=== PATIENT | male | born 1930 | race Caucasian/White ===

== ENCOUNTER 2017-07-19 12:06 | Inpatient (IN) | payer MEDICARE ==
[2017-07-19] MEDS ORDERED: ASPIRIN 81 MG PO STA (12:23)
[2017-07-19] MEDS ORDERED: NITROGLYCERIN OINT 1 INCH/GM PACKET TOPICAL STA (12:23)
[2017-07-19] MEDS ORDERED: MORPHINE SULFATE 4 MG/ML SYRINGE IVP STA (12:23)
[2017-07-19] MEDS ORDERED: FUROSEMIDE 10 MG/ML 4 ML VIAL IV STA (12:24)
--- NOTE | 2017-07-19 12:28 | ED ---
Chest Pain HPI - General Chief Complaint: Chest Pain Stated Complaint: Chest Pain Time Seen by Provider: 07/19/17 12:16 Source: patient Mode of arrival: wheelchair Limitations: no limitations - History of Present Illness Initial Comments: This 87-year-old white male presents with a complaint of some left upper chest pain/pressure. It seems radiate into his left trapezius and down his left arm. This is been present intermittently over the last 2 days. He does have some shortness of breath when he lays down flat. He has chronic lower extremity edema normally worse on the left status post CABG. He states that this is somewhat worse over the last couple of days as well. He denies any history of DVT or PE. He does have a history of previous CABG remotely. He is unsure of his last stress test. He has not had a heart catheterization recently. He denies any cough but states that he felt feverish over the last couple of days. No other complaints or modifying factors. He states that he just flew back from [place] 2 days ago. - Related Data Home Medications Medication Instructions Recorded Confirmed Aspirin 81 mg PO DAILY 06/27/14 07/19/17 Garlic 1 tab PO DAILY 06/27/14 07/19/17 Ubidecarenone [Coenzyme Q10] 10 mg PO DAILY 06/27/14 07/19/17 Cyanocobalamin (Vitamin B-12) 1,000 mcg PO DAILY 07/19/17 07/19/17 [Vitamin B-12] Allergies Allergy/AdvReac Type Severity Reaction Status Date / Time No Known Allergies Allergy Verified 07/19/17 12:25 Review of Systems ROS Statement: Those systems with pertinent positive or pertinent negative responses have been documented in the HPI. ROS Other: All systems not noted in ROS Statement are negative. Past Medical History Past Medical History: Atrial Fibrillation, Coronary Artery Disease (CAD), Cancer , Chest Pain / Angina, GI Bleed, Hyperlipidemia, Hypertension, Myocardial Infarction (SC), Skin Disorder Additional Past Medical History / Comment(s): Intracranial bleed/hematoma status post bur hole, basal cell carcinoma of the face status post skin graft Last Myocardial Infarction Date:: 06/27/14 History of Any Multi-Drug Resistant Organisms: None Reported Past Surgical History: Cholecystectomy, Coronary Bypass/CABG, Orthopedic Surgery , Tonsillectomy Additional Past Surgical History / Comment(s): Bilateral total knee arthroplasty , R shoulder surgery, Skin grafting left arm to face for basal cell carcinoma, bilateral cataract removal and lens implants, bilateral eyelid lift Past Anesthesia/Blood Transfusion Reactions: No Reported Reaction Past Psychological History: No Psychological Hx Reported Smoking Status: Former smoker Past Alcohol Use History: None Reported Past Drug Use History: None Reported - Past Family History Father Family Medical History: Myocardial Infarction (SC) ( at age 87 from myocardial infarction) Mother Family Medical History: Myocardial Infarction (SC) ( at age 85 from heart problems.) Son(s) Family Medical History: Hypertension Additional Family Medical History / Comment(s): He has 6 children and one son has hypertension. Brother(s) Family Medical History: Asthma, Cancer, Coronary Artery Disease (CAD) Additional Family Medical History / Comment(s): Patient had 2 brothers and one is alive with a pacemaker, one has from lupus. Patient had 3 sisters one has from pancreatic cancer, one has from asthma complications, and one is alive with chronic back problems. General Exam - General Exam Comments Initial Comments: GENERAL: The patient is well nourished and well hydrated. VITAL SIGNS: Heart rate, blood pressure, respiratory rate reviewed as recorded in nurse's notes. EYES: Pupils are round and reactive. Extraocular movements are intact. No conjunctival / lid redness or swelling. ENT: No external evidence of injury, swelling, or ecchymosis. Airway is patent. Throat is clear. NECK: Nontender. No swelling or evidence of injury. No subcutaneous emphysema. Trachea is midline. No thyroid mass. HEART: Regular rate and rhythm. Good peripheral pulses. There is bilateral lower extremity edema worse on the left leg. LUNGS/CHEST: Breath sounds clear and equal bilaterally. No rales, rhonchi, or wheezes. No ecchymosis, subcutaneous emphysema, or tenderness. ABDOMEN: Abdomen soft without tenderness. No palpable masses or organomegaly. No peritoneal signs. No abdominal wall swelling or ecchymosis. EXTREMITIES: No extremity tenderness. Normal muscle tone and function. No thoracolumbar tenderness. NEUROLOGIC: Sensation is grossly intact. Cranial nerve exam reveals face is symmetrical, tongue is midline, speech is clear. SKIN: No abrasions or ecchymosis is noted. No induration or masses noted. PSYCHIATRIC: Alert and oriented. Appropriate behavior and judgment. Limitations: no limitations Course Vital Signs 07/19/17 07/19/17 12:10 15:36 Temperature 98.3 F Pulse Rate 48 L 54 L Respiratory 18 18 Rate Blood Pressure 196/90 136/77 O2 Sat by Pulse 98 100 Oximetry Chest Pain MDM - MDM The patient was seen and examined. All diagnostics were reviewed. An IV is started and he is placed on a radiation monitor. He does receive aspirin as well as some Nitropaste and 40 mg of Lasix intravenously. The patient also had an EKG done which shows atrial fibrillation at a rate of 60. There is some ST-T wave changes noted primarily in the inferolateral leads. The patient's QRS duration is 112, and the QTC intervals 466. The patient's labs do show an elevation of the troponin, elevation of the d-dimer, and elevation of the BNP. The chest x-ray shows possible congestive heart failure. The computed tomography scan of the thorax does not show any evidence of pulmonary embolism but there is a possible right upper lobe mass versus atelectasis. The patient is informed of these findings. It is felt as though he would require admission to the hospital for possible non-ST elevation myocardial infarction and congestive heart failure. He is agreeable. The case is also discussed with Dr. Duncan and he is agreeable to admission with cardiology to consult and is agreeable to heparin administration. Disposition Clinical Impression: Chest pain, Bradycardia, Hypertension, Congestive heart failure, Lung mass, NSTEMI (non-ST elevated myocardial infarction) Disposition: ADMITTED IP TO THIS [facility] Condition: Fair Time of Disposition: 15:59 Decision Date: 07/19/17 Decision Time: 15:59
[2017-07-19 12:44] LABS: Basophils % (A) 0 %; Eosinophils % (A) 1 %; HCT 44.9 % (39.0-53.0); HGB 14.7 gm/dL (13.0-17.5); Lymphocytes # (A) 0.7 k/uL (1.0-4.8); Lymphocytes % (A) 9 %; MCH 28.5 pg (25.0-35.0); MCHC 32.7 g/dL (31.0-37.0); Mean Platelet Volume 8.9; Monocytes # (A) 0.5 k/uL (0-1.0); Monocytes % (A) 6 %; Neutrophils # (A) 6.7 k/uL (1.3-7.7); Neutrophils % (A) 83 %; Platelet Count 184 k/uL (150-450); RBC 5.16 m/uL (4.30-5.90); RDW 13.9 % (11.5-15.5); WBC 8.1 k/uL (3.8-10.6)
[2017-07-19 12:59] LABS: D-Dimer 0.82 mg/L FEU (<0.60); INR 1.2 (<1.2); Partial Thromboplastin Time 33.7 sec (22.0-30.0); Prothrombin Time 11.2 sec (9.0-12.0)
[2017-07-19] MEDS ORDERED: RX INFO: IV CONTRAST WAS GIVEN 1 EACH MISC MISCELLANE PRN (13:07)
[2017-07-19 13:13] LABS: ALT 42 U/L (21-72); AST 37 U/L (17-59); Albumin 4.2 g/dL (3.5-5.0); Alkaline Phosphatase 90 U/L (38-126); Anion Gap 10 mmol/L; Blood Urea Nitrogen 18 mg/dL (9-20); Calcium 9.5 mg/dL (8.4-10.2); Carbon Dioxide 28 mmol/L (22-30); Chloride 105 mmol/L (98-107); Glucose 96 mg/dL (74-99); Magnesium 1.9 mg/dL (1.6-2.3); Potassium 4.6 mmol/L (3.5-5.1); Sodium 143 mmol/L (137-145); Total Bilirubin 1.4 mg/dL (0.2-1.3)
--- NOTE | 2017-07-19 13:17 | XR ---
EXAMINATION TYPE: XR chest 2V DATE OF EXAM: 07/19/2017 COMPARISON: Prior chest x-ray 06/27/2014 HISTORY: Chest pain TECHNIQUE: Frontal and lateral views of the chest are obtained. FINDINGS: Postop changes are again noted. There is been interval development of increased density at the left lung base with obscured left hemidiaphragm, heart border and blunting of the left costophre sandeep angle. Interstitium and central vascularity are prominent. Prominent lung volumes compatible with underlying COPD. No evident pneumothorax. IMPRESSION: Correlate for congestive heart failure in a patient with pre-existing COPD. Pneumonia no t excluded.
[2017-07-19 13:31] LABS: Creatine Kinase MB 4.3 ng/mL (0.0-2.4); Troponin I 0.054 ng/mL (0.000-0.034)
[2017-07-19] MEDS ORDERED: LABETALOL 5 MG/ML VIAL MDV IVP STA (13:41)
--- NOTE | 2017-07-19 13:45 | US ---
EXAMINATION TYPE: US venous doppler duplex LE BI DATE OF EXAM: 07/19/2017 12:25 PM COMPARISON: NONE CLINICAL HISTORY: Pain. Bilateral leg swelling SIDE PERFORMED: Bilateral TECHNIQUE: The lower extremity deep venous system is examined utilizing real time linear array sonog sushma with graded compression, doppler sonography and color-flow sonography. VESSELS IMAGED: External Iliac Vein (EIV) Common Femoral Vein Deep Femoral Vein Greater Saphenous Vein * Femoral Vein Popliteal Vein Small Saphenous Vein * Proximal Calf Veins (* superficial vessels) Right Leg: Negative for DVT Left Leg: Negative for DVT Grayscale, color doppler, spectral doppler imaging performed of the deep veins of the lower extremiti es. There is normal flow, compressibility, vascular waveforms. IMPRESSION: No evident deep venous thrombosis at or above the knees.
--- NOTE | 2017-07-19 15:34 | CT ---
CT CHEST FOR PULMONARY EMBOLISM. EXAMINATION TYPE: CT angio chest DATE OF EXAM: 07/19/2017 INDICATION: Chest pain. CT DLP: 491.2 mGycm, Automated exposure control for dose reduction was used. CONTRAST: Patient injected with 100ml mL of Omnipaque 350. COMPARISON: 06/27/2014 TECHNIQUE: CT of the chest is performed on a spiral scan at 2 mm thick sections. Study is performed with intravenous contrast timed for evaluation for pulmonary embolism. This will limit additional po rtions of the evaluation. 3-D MIP images reconstructed by the technologist are reviewed on the compu ter in the coronal and sagittal planes. FINDINGS: No persistent filling defects are evident to suggest an acute pulmonary embolism. No mediastinal or hilar adenopathy enlarged by CT criteria is evident. The ascending aorta diameter at the level of the main pulmonary artery is 4.0 cm. The main pulmonary artery diameter at the bifur cation is 2.8 cm. Tiny punctate nodules in the posterior left apex measuring 0.3 cm. Series 5 image 10. This is not roberta ntified in 2013. Some groundglass opacities in the posterior right upper lung field. Series 5 image 3 8. Small left pleural effusion is present. Compressive atelectasis is adjacent. Groundglass opacities above the minor fissure on the right. Some lingular consolidation with tenting of the pleural margin is present near the lingular base. Tico e atelectasis may be present at the left base adjacent pleural effusion. Underlying mass is not exclu ded. Follow-up is recommended. There is elevation left diaphragm. Limited CT section through the upper abdomen are unremarkable. IMPRESSIONS: 1. No acute pulmonary embolism. 2. Small left pleural effusion with adjacent atelectasis. Some atelectasis or underlying mass in the lingula may be present. Follow-up is recommended. 3. Additional nonspecific lung findings discussed above.
[2017-07-19] MEDS ORDERED: NITROGLYCERIN SL TABS 0.4 MG TAB SUBLINGUAL PRN (15:59)
[2017-07-19] MEDS ORDERED: HEPARIN SODIUM,PORCINE 5,000 UNIT/ML 1 ML VIAL IV ONE (15:59)
[2017-07-19] MEDS ORDERED: HEPARIN SODIUM,PORCINE 5,000 UNIT/ML 1 ML VIAL IV PRN (15:59)
[2017-07-19] MEDS ORDERED: ACETAMINOPHEN TAB 325 MG TAB PO PRN (15:59)
[2017-07-19] MEDS: HEPARIN SOD,PORK IN 0.45% NACL 25,000 UNIT in 0.45% NACL 1 500ML.BAG IV SCH (16:37)
[2017-07-19] MEDS: NITROGLYCERIN OINT 1 INCH/GM PACKET TOPICAL SCH (19:00)
[2017-07-19 19:45] LABS: Creatine Kinase MB 3.9 ng/mL (0.0-2.4); Troponin I 0.065 ng/mL (0.000-0.034)
[2017-07-19] MEDS: FUROSEMIDE 10 MG/ML 4 ML VIAL IV SCH (20:16)
[2017-07-20] MEDS: NITROGLYCERIN OINT 1 INCH/GM PACKET TOPICAL SCH ×2 (00:39→06:07)
[2017-07-20 01:39] LABS: Creatine Kinase MB 3.6 ng/mL (0.0-2.4); Troponin I 0.059 ng/mL (0.000-0.034)
[2017-07-20 05:42] LABS: Mean Platelet Volume 8.8; Platelet Count 161 k/uL (150-450)
[2017-07-20 06:14] LABS: Cholesterol 111 mg/dL (<200); HDL Cholesterol 50 mg/dL (40-60); LDL Cholesterol,Calculated 49 mg/dL (0-99); Triglycerides 59 mg/dL (<150)
[2017-07-20] MEDS ORDERED: NON-FORMULARY DRUG (Garlic [Garlic] 1 TAB) PO SCH (09:00)
[2017-07-20] MEDS ORDERED: ASPIRIN 325 MG TAB PO SCH (09:00)
[2017-07-20] MEDS ORDERED: UBIDECARENONE 10 MG PO SCH (09:00)
[2017-07-20] MEDS: FUROSEMIDE 10 MG/ML 4 ML VIAL IV SCH (09:10)
[2017-07-20] MEDS: CYANOCOBALAMIN 500 MCG TAB PO SCH (09:10)
--- NOTE | 2017-07-20 10:12 | CONS ---
CONSULTATION An 87-year-old male patient who presented with elevated blood pressures over 200 mmHg as well as left arm discomfort. He has been having recurrent discomfort on the left arm for 2 days. Medications at home: He has been taking aspirin only. He was a patient Dr. Neli Haji and he stopped taking all his medications. He was on several blood pressure medications, but he took second opinion in [place] and states that he was asked to stop his medications. His usual blood pressure at home runs are 190 mmHg. He was also recommended to have a permanent pacemaker implantation and here while his 12-lead ECG shows sinus bradycardia. He took a second opinion in [place] and was told that he did not need a pacemaker. PAST HISTORY: Past history of atrial fibrillation, currently in sinus rhythm, coronary artery disease, GI bleeding, angina, CAD, history of CT, history of intracranial bleeding, status post pierre hole, coronary artery bypass grafting. REVIEW OF SYSTEMS: No fever, chills, or rigors. No cough or expectoration. No nausea, vomiting or diarrhea. No hematuria or dysuria. No strokes or seizures. No skin lesions or musculoskeletal complaints. ALLERGIES: No known drug allergies. PHYSICAL EXAMINATION: On examination, his blood pressure is 109/62 mmHg, 138/80 mmHg, pulse rate in the 50s. He is afebrile. Heart sounds S1, S2 are normal. Breath sounds are clear. No rhonchi, no crackles. Abdomen is soft, nontender. Extremities are warm. No edema. A 12-lead ECG shows atrial fibrillation with a controlled ventricular response, left axis deviation and LVH. Labs are reviewed. D-dimer 0.82. He underwent a CT of the chest that did not show any pulmonary embolism. His cardiac enzymes 0.05, 0.06, 0.06. Kidney function is normal. Hemoglobin is normal. IMPRESSION: 1. History of elevated blood pressure upon admission, currently his blood pressure is normal. 2. History of atrial fibrillation with controlled ventricular response. 3. History of chest discomfort/left arm discomfort with borderline abnormal troponins. SUGGEST: A baby aspirin along with statins and Imdur 15 mg p.o. daily. Avoid beta blockers since he is intrinsically rate controlled and is mildly bradycardic occasionally. Medical management for CAD with statins and aspirin. He has atrial fibrillation, but he has had a history of intracerebral bleeding and therefore is not on anticoagulation at this time. MMODL / IJN: [id number] /
[2017-07-20 13:49] VITALS: BMI 24.2
--- NOTE | 2017-07-20 17:13 | P.CNPUL ---
<Erica Currie M - Last Filed: 07/20/17 16:38> History of Present Illness Consult date: 07/20/17 Requesting physician: Tyler Anguiano Jr Reason for consult: dyspnea, abnormal CXR/CT Chief complaint: Left upper chest pain, orthopnea History of present illness: Mr. Melvin 87-year-old white male patient of Dr. Anguiano, who presented emergency department on 07/19/2017 at 1206 with complaints of left upper chest pain, radiating into his left arm. He was also having some mild orthopnea. Patient has chronic lower extremity edema, left greater than right, present since his coronary artery bypass grafting and vein harvest from the left leg. He noticed the edema in his lower legs is somewhat worse prior to admission. His symptoms started 2 days prior to coming in. He denies any cough, denied any fever or chills. He just returned from [place] 2 days prior to admission. EKG showed A. fib with controlled rate at 60 BPM, without acute ST elevation. Chest x-ray showed increasing density at the left lung base with obscured left hemidiaphragm blunting of the left costophrenic angle consistent with left pleural effusion. Interstitium and central vascularity were prominent. There is underlying COPD. bilateral lower extremity Dopplers were negative for DVTs. CT angiogram of the chest showed no filling defects to suggest any acute pulmonary embolism, small left pleural effusion with adjacent atelectasis. Patient was given IV diuresis in the form of Lasix, patient has been on heparin drip. We're consulted in regards to possible pulmonary mass, but upon reviewing the CTA chest there is no evidence of a mass noted. Patient was positive troponin stop and 0.065, CK-MB at 4.3. ProBNP was 3210. Patient's past medical history is positive for atrial fibrillation, coronary artery disease, GI bleeding, COPD, history of NM, history of intracranial bleeding, status post pierre hole, basal skin cancer with resection on the right side of face, hyperlipidemia, hypertension. Patient is currently in negative 2272 mL fluid balance over the last 24 hours. The time of evaluation he is on room air , denies any distress, he is ambulating around the room and tolerating activity well. IV Lasix has been discontinued per cardiology. Patient is currently afebrile, hemodynamically stable, he is on room air with a pulse ox of 98%. Patient's results of the CTA chest were reviewed with him, there is a small left pleural effusion, but no evidence of a pulmonary mass noted. Review of Systems All systems: negative Constitutional: Denies chills, Denies fever Eyes: denies blurred vision, denies pain Ears, nose, mouth and throat: Denies headache, Denies sore throat Cardiovascular: Denies chest pain, Denies shortness of breath Respiratory: Denies cough Gastrointestinal: Denies abdominal pain, Denies diarrhea, Denies nausea, Denies vomiting Musculoskeletal: Denies myalgias Integumentary: Denies pruritus, Denies rash Neurological: Denies numbness, Denies weakness Psychiatric: Denies anxiety, Denies depression Endocrine: Denies fatigue, Denies weight change Past Medical History Past Medical History: Atrial Fibrillation, Coronary Artery Disease (CAD), Cancer , Chest Pain / Angina, GI Bleed, Hyperlipidemia, Hypertension, Myocardial Infarction (NM), Skin Disorder Additional Past Medical History / Comment(s): Intracranial bleed/hematoma status post bur hole, basal cell carcinoma of the face status post skin graft Last Myocardial Infarction Date:: 06/27/14 History of Any Multi-Drug Resistant Organisms: None Reported Past Surgical History: Cholecystectomy, Coronary Bypass/CABG, Orthopedic Surgery , Tonsillectomy Additional Past Surgical History / Comment(s): Bilateral total knee arthroplasty , R shoulder surgery, Skin grafting left arm to face for basal cell carcinoma, bilateral cataract removal and lens implants, bilateral eyelid lift Past Anesthesia/Blood Transfusion Reactions: No Reported Reaction Past Psychological History: No Psychological Hx Reported Smoking Status: Former smoker Past Alcohol Use History: None Reported Additional Past Alcohol Use History / Comment(s): Patient was a smoker of half pack per day for approximately 35 years and quit 45 years ago. Past Drug Use History: None Reported - Past Family History Father Family Medical History: Myocardial Infarction (NM) Mother Family Medical History: Myocardial Infarction (NM) Son(s) Family Medical History: Hypertension Additional Family Medical History / Comment(s): He has 6 children and one son has hypertension. Brother(s) Family Medical History: Asthma, Cancer, Coronary Artery Disease (CAD) Additional Family Medical History / Comment(s): Patient had 2 brothers and one is alive with a pacemaker, one has from lupus. Patient had 3 sisters one has from pancreatic cancer, one has from asthma complications, and one is alive with chronic back problems. Medications and Allergies Home Medications Medication Instructions Recorded Confirmed Type Aspirin 81 mg PO DAILY 06/27/14 07/19/17 History Garlic 1 tab PO DAILY 06/27/14 07/19/17 History Ubidecarenone [Coenzyme Q10] 10 mg PO DAILY 06/27/14 07/19/17 History Cyanocobalamin (Vitamin B-12) 1,000 mcg PO DAILY 07/19/17 07/19/17 History [Vitamin B-12] Allergies Allergy/AdvReac Type Severity Reaction Status Date / Time No Known Allergies Allergy Verified 07/19/17 12:25 Physical Exam Vitals: Vital Signs Temp Pulse Pulse Resp BP BP Pulse Ox 07/20/17 12:21 97.7 F 63 16 150/88 98 07/20/17 09:12 97.6 F 63 16 146/94 98 07/20/17 04:00 97.9 F 55 L 18 109/62 98 07/20/17 00:00 97.4 F L 49 L 17 138/80 98 07/19/17 20:00 97.0 F L 52 L 18 131/60 97 07/19/17 17:28 97.0 F L 47 L 16 150/86 97 07/19/17 16:40 54 L 16 146/100 99 Intake and Output 07/20/17 07/20/17 07/20/17 06:59 14:59 22:59 Intake Total 127.964 240 Output Total 2400 Balance -2272.036 240 Intake: Intake, IV Titration 127.964 Amount Heparin Sod,Pork in 0.45% 127.964 NaCl 25,000 unit In 0.45 % NaCl 1 500ml.bag @ 12 UNITS/KG/HR 17.41 mls/hr IV .Q24H [facility] Rx#: [id number] Oral 240 Output: Urine 2400 Other: Voiding Method Urinal Urinal # Voids 4 1 Weight 72.3 kg 72.3 kg Patient Weight 07/21/17 06:59 Weight 72.3 kg GENERAL EXAM: Alert, pleasant 87-year-old white male, comfortable in no apparent distress. Patient has slight speech slurring HEAD: Normocephalic/atraumatic. There is evidence of surgical resection and grafting on right side of the face secondary to history of basal skin cancer. Surgical incisions are well-healed EYES: Normal reaction of pupils, equal size. Conjunctiva pink, sclera white. NOSE: Clear with pink turbinates. THROAT: No erythema or exudates. NECK: No masses, no JVD, no thyroid enlargement, no adenopathy. CHEST: No chest wall deformity. Symmetrical expansion. LUNGS: Equal air entry with no crackles, wheeze, rhonchi. Diminished air entry noted over left posterior lower lobe CVS: Regular rate and rhythm, normal S1 and S2, no gallops, no murmurs, no rubs ABDOMEN: Soft, nontender. No hepatosplenomegaly, normal bowel sounds, no guarding or rigidity. EXTREMITIES: No clubbing, no cyanosis, 2+ pulses and upper and lower extremities. 1+ edema in the left lower extremity, trace edema in the right extremity MUSCULOSKELETAL: Muscle strength and tone normal. SPINE: No scoliosis or deformity SKIN: No rashes CENTRAL NERVOUS SYSTEM: Alert and oriented -3. No focal deficits, tone is normal in all 4 extremities. PSYCHIATRIC: Alert and oriented -3. Appropriate affect. Intact judgment and insight. Results - Laboratory Findings CBC and BMP: 07/20/17 05:29 07/19/17 12:32 PT/INR, D-dimer PT 11.2 sec (9.0-12.0) 07/19/17 12:32 INR 1.2 (<1.2) H 07/19/17 12:32 D-Dimer 0.82 mg/L FEU (<0.60) H 07/19/17 12:32 Abnormal lab findings: Abnormal Labs 07/19/17 07/19/17 07/19/17 12:32 12:32 12:32 Lymphocytes # 0.7 L INR APTT D-Dimer Total Bilirubin 1.4 H CK-MB (CK-2) 4.3 H* Troponin I 0.054 H* 07/19/17 07/19/17 07/19/17 12:32 18:49 21:40 Lymphocytes # INR 1.2 H APTT 33.7 H 105.5 H* D-Dimer 0.82 H Total Bilirubin CK-MB (CK-2) 3.9 H* Troponin I 0.065 H* 07/20/17 07/20/17 00:31 05:29 Lymphocytes # INR APTT 49.1 H D-Dimer Total Bilirubin CK-MB (CK-2) 3.6 H* Troponin I 0.059 H* - Diagnostic Findings Chest x-ray: report reviewed CT scan - chest: report reviewed Additional studies: Twelve-lead EKG, chest CTA Assessment and Plan Plan: Assessment: #1. Acute non-ST elevated NM #2. Small left plural effusion seen on the chest x-ray and CTA chest. No evidence of pulmonary mass noted. #3. Bradycardia, hypertension, chest pain secondary to non-STEMI #4. Chronic atrial fibrillation with controlled ventricular response #5. Coronary artery disease, status post coronary artery bypass grafting #6. Hypertension, hyperlipidemia #7. Nicotine dependence, currently in remission #8. Basal cell carcinoma of the face, status post skin grafting Plan: CTA chest was reviewed by Dr. Benavides, with the patient, there is no evidence of a pulmonary mass noted. There is a small left pleural effusion, there is no need to drain it at this time. Patient denies any dyspnea right now he is on room air. Patient received some IV diuretics. Patient will be followed up on an outpatient basis. I performed a history & physical examination of the patient and discussed their management with my nurse practitioner, Erica Currie. I reviewed the nurse practitioner's note and agree with the documented findings and plan of care. Lung sounds are positive diminished lung sounds over left lower lobe. The findings and the impression was discussed with the patient. I attest to the documentation by the nurse practitioner. Time with Patient: Greater than 30 <John Benavides - Last Filed: 07/20/17 17:17> Physical Exam Vitals: Vital Signs Temp Pulse Resp BP Pulse Ox 07/20/17 12:21 97.7 F 63 16 150/88 98 07/20/17 09:12 97.6 F 63 16 146/94 98 07/20/17 04:00 97.9 F 55 L 18 109/62 98 07/20/17 00:00 97.4 F L 49 L 17 138/80 98 07/19/17 20:00 97.0 F L 52 L 18 131/60 97 07/19/17 17:28 97.0 F L 47 L 16 150/86 97 Intake and Output 03/09/18 03/09/18 03/09/18 06:59 14:59 22:59 Intake Total 127.964 240 Output Total 2400 Balance -2272.036 240 Intake: Intake, IV Titration 127.964 Amount Heparin Sod,Pork in 0.45% 127.964 NaCl 25,000 unit In 0.45 % NaCl 1 500ml.bag @ 12 UNITS/KG/HR 17.41 mls/hr IV .Q24H [facility] Rx#: [id number] Oral 240 Output: Urine 2400 Other: Voiding Method Urinal Urinal # Voids 4 1 Weight 72.3 kg 72.3 kg Patient Weight 07/21/17 06:59 Weight 72.3 kg Results - Laboratory Findings CBC and BMP: 07/20/17 05:29 07/19/17 12:32 PT/INR, D-dimer PT 11.2 sec (9.0-12.0) 07/19/17 12:32 INR 1.2 (<1.2) H 07/19/17 12:32 D-Dimer 0.82 mg/L FEU (<0.60) H 07/19/17 12:32 Abnormal lab findings: Abnormal Labs 07/19/17 07/19/17 07/19/17 12:32 12:32 12:32 Lymphocytes # 0.7 L INR APTT D-Dimer Total Bilirubin 1.4 H CK-MB (CK-2) 4.3 H* Troponin I 0.054 H* 07/19/17 07/19/17 07/19/17 12:32 18:49 21:40 Lymphocytes # INR 1.2 H APTT 33.7 H 105.5 H* D-Dimer 0.82 H Total Bilirubin CK-MB (CK-2) 3.9 H* Troponin I 0.065 H* 07/20/17 07/20/17 00:31 05:29 Lymphocytes # INR APTT 49.1 H D-Dimer Total Bilirubin CK-MB (CK-2) 3.6 H* Troponin I 0.059 H* Assessment and Plan Plan: This is a joint evaluation that was done along with a nurse practitioner. The consultation was for lung mass. I reviewed the CAT scan and there is no indication for any lung mass. The patient has COPD. The patient also has a left-sided pleural effusion which is not causing any significant shortness of breath and the patient is currently on room air. This pleural effusions related to congestion heart failure in a setting of an acute myocardial infarction. No need for drainage. CHF management. Acute NM management.
[2017-07-20] MEDS: ISOSORBIDE MONONITRATE ER 15 MG TAB PO SCH (17:16)
[2017-07-20] MEDS: ATORVASTATIN 20 MG TAB PO SCH (17:16)
--- NOTE | 2017-07-20 18:20 | P.HPIM ---
History of Present Illness H&P Date: 07/20/17 Chief Complaint: chest pain 87-year-old male who presented to the emergency room with a chief complaint of chest pain that has lasted for the last 2 days. Patient reports pain radiates down his left arm. Patient reports that the pain comes in goes. Reports shortness of breath. It is also noted that the patient was in [place] and flew home a few days ago. Denies cough. Denies fever or chills. Denies nausea or vomiting. Denies lightheadedness or dizziness. The patient has a history of atrial fibrillation, coronary artery disease, coronary artery bypass graft surgery, GI bleed, hyperlipidemia, hypertension, myocardial infarction, intracranial bleed with prior holes, basal cell carcinoma of the face, and bilateral total knee replacements. the patient is a former cigarette smoker. Chest x-ray: correlate for congestive heart failure in a patient with pre- existing COPD. Pneumonia not excluded. Doppler of bilateral lower extremities: Negative for DVT bilaterally CTA of the chest: Negative for pulmonary embolus. Small left pleural effusion with adjacent atelectasis. some atelectasis or underlying mass in the lingula may be present. EKG: atrial fibrillation, rate 60. Laboratory data: WBC 8.1. Hemoglobin 14.7. platelet count 184. sodium 143. Potassium 4.6. BUN 18. Creatinine 0.80. GFR 81. Glucose 96. Magnesium 1.9. Troponin: 0.054, 0.065, 0.059 BNP 3210 Lipid panel: Triglycerides 59, cholesterol 111, LDL 49, HDL 50 D-Dimer: 0.82 The patient was admitted to the hospital under the care of Dr. Duncan. Consultations were placed to cardiology. Review of Systems GENERAL: Patient denies fever. Denies chills. EYES: Denies blurred vision. Denies vision changes. Denies eye pain. EARS, NOSE, MOUTH, & THROAT: Denies headache. Denies sore throat. Denies ear pain. RESPIRATORY: positive for shortness of breath when patient is supine. Denies cough. Denies sputum production. Denies hemoptysis. CARDIOVASCULAR: positive for chest discomfort that radiates to left arm. Denies palpitations. positive for history of atrial fibrillation. GASTROINTESTINAL: Denies abdominal pain. Denies diarrhea. Denies constipation. Denies nausea. Denies vomiting. Denies heartburn. Denies blood in the stool. GENITOURINARY: Denies urinary frequency. Denies burning. Denies dysuria. Denies cloudy urine. Denies blood in the urine. MUSCULOSKELETAL: Denies myalgias. Denies joint swelling. Denies decreased range of motion beyond patients baseline. INTEGUMENTARY: Denies pruitis. Denies rash. PSYCHIATRIC: Denies suicidal or homicial ideations. ENDOCRINE: Denies weight change. Denies polydipsia. Denies polyuria. HEMATOLOGIC: Denies bleeding disorders. Past Medical History Past Medical History: Atrial Fibrillation, Coronary Artery Disease (CAD), Cancer , Chest Pain / Angina, GI Bleed, Hyperlipidemia, Hypertension, Myocardial Infarction ([place]), Skin Disorder Additional Past Medical History / Comment(s): Intracranial bleed/hematoma status post bur hole, basal cell carcinoma of the face status post skin graft Last Myocardial Infarction Date:: 06/27/14 History of Any Multi-Drug Resistant Organisms: None Reported Past Surgical History: Cholecystectomy, Coronary Bypass/CABG, Orthopedic Surgery , Tonsillectomy Additional Past Surgical History / Comment(s): Bilateral total knee arthroplasty , R shoulder surgery, Skin grafting left arm to face for basal cell carcinoma, bilateral cataract removal and lens implants, bilateral eyelid lift Past Anesthesia/Blood Transfusion Reactions: No Reported Reaction Past Psychological History: No Psychological Hx Reported Smoking Status: Former smoker Past Alcohol Use History: None Reported Additional Past Alcohol Use History / Comment(s): Patient was a smoker of half pack per day for approximately 35 years and quit 45 years ago. Past Drug Use History: None Reported - Past Family History Father Family Medical History: Myocardial Infarction ([place]) Mother Family Medical History: Myocardial Infarction ([place]) Son(s) Family Medical History: Hypertension Additional Family Medical History / Comment(s): He has 6 children and one son has hypertension. Brother(s) Family Medical History: Asthma, Cancer, Coronary Artery Disease (CAD) Additional Family Medical History / Comment(s): Patient had 2 brothers and one is alive with a pacemaker, one has from lupus. Patient had 3 sisters one has from pancreatic cancer, one has from asthma complications, and one is alive with chronic back problems. Medications and Allergies Home Medications Medication Instructions Recorded Confirmed Type Aspirin 81 mg PO DAILY 06/27/14 07/19/17 History Garlic 1 tab PO DAILY 06/27/14 07/19/17 History Ubidecarenone [Coenzyme Q10] 10 mg PO DAILY 06/27/14 07/19/17 History Cyanocobalamin (Vitamin B-12) 1,000 mcg PO DAILY 07/19/17 07/19/17 History [Vitamin B-12] Allergies Allergy/AdvReac Type Severity Reaction Status Date / Time No Known Allergies Allergy Verified 07/19/17 12:25 Physical Exam Vitals: Vital Signs Temp Pulse Pulse Resp BP BP Pulse Ox 07/20/17 09:12 97.6 F 63 16 146/94 98 07/20/17 04:00 97.9 F 55 L 18 109/62 98 07/20/17 00:00 97.4 F L 49 L 17 138/80 98 07/19/17 20:00 97.0 F L 52 L 18 131/60 97 07/19/17 17:28 97.0 F L 47 L 16 150/86 97 07/19/17 16:40 54 L 16 146/100 99 07/19/17 15:36 54 L 18 136/77 100 07/19/17 12:10 98.3 F 48 L 18 196/90 98 Intake and Output 07/19/17 07/20/17 07/20/17 22:59 06:59 14:59 Intake Total 127.964 Output Total 2400 Balance -2272.036 Intake: Intake, IV Titration 127.964 Amount Heparin Sod,Pork in 0.45% 127.964 NaCl 25,000 unit In 0.45 % NaCl 1 500ml.bag @ 12 UNITS/KG/HR 17.41 mls/hr IV .Q24H [facility] Rx#: [id number] Output: Urine 2400 Other: Voiding Method Urinal Urinal Urinal # Voids 4 Weight 72.575 kg 72.3 kg GENERAL: This is a 87-year-old male in no apparent distress at the time of examination. Pleasant and cooperative. HEENT: Head is atraumatic, normocephalic. Pupils are equal, round, and reactive to light. Sclerae anicteric. Conjunctivae are clear. Mucus membranes of the mouth are moist. Neck is supple. RESPIRATORY: Clear to ausculation. No wheezes, rales, or rhonchi. No use of accessory muscles. Patient maintaining oxygen saturation greater than 92%. No chest wall tenderness is noted on palpation or with deep breathing. CARDIOVASCULAR: irregular rhythm. S1 and S2 noted. No JVD noted. No S3 or S4 noted. GASTROINTESTINAL: No distention noted. Abdomen soft and round. Normal active bowel sounds auscultated x 4 quadrants. No pain or tenderness noted upon palpation. INTEGUMENTARY: No cyanosis. No jaundice. No rashes noted. No cellulitis noted. EXTREMITIES: 2+ peripheral pulses. trace bilateral lower extremity edema. No calf tenderness noted. NEUROLOGIC: Cranial nerves II-XII intact. PSYCHIATRIC: Awake, alert, and oriented X 3. Appropriate affect. Intact judgement and insight. Results CBC & Chem 7: 07/20/17 05:29 07/19/17 12:32 Labs: Abnormal Lab Results - Last 24 Hours (Table) 07/19/17 07/19/17 07/19/17 Range/Units 12:32 12:32 12:32 Lymphocytes # 0.7 L (1.0-4.8) k/uL INR (<1.2) APTT (22.0-30.0) sec D-Dimer (<0.60) mg/L FEU Total Bilirubin 1.4 H (0.2-1.3) mg/dL CK-MB (CK-2) 4.3 H* (0.0-2.4) ng/mL Troponin I 0.054 H* (0.000-0.034) ng/mL 07/19/17 07/19/17 07/19/17 Range/Units 12:32 18:49 21:40 Lymphocytes # (1.0-4.8) k/uL INR 1.2 H (<1.2) APTT 33.7 H 105.5 H* (22.0-30.0) sec D-Dimer 0.82 H (<0.60) mg/L FEU Total Bilirubin (0.2-1.3) mg/dL CK-MB (CK-2) 3.9 H* (0.0-2.4) ng/mL Troponin I 0.065 H* (0.000-0.034) ng/mL 07/20/17 07/20/17 Range/Units 00:31 05:29 Lymphocytes # (1.0-4.8) k/uL INR (<1.2) APTT 49.1 H (22.0-30.0) sec D-Dimer (<0.60) mg/L FEU Total Bilirubin (0.2-1.3) mg/dL CK-MB (CK-2) 3.6 H* (0.0-2.4) ng/mL Troponin I 0.059 H* (0.000-0.034) ng/mL Thrombosis Risk Factor Assmnt - Choose All That Apply Any of the Below Risk Factors Present?: Yes Each Factor Represents 1 point: Heart failure (<1month), Swollen legs (current) Each Risk Factor Represents 3 Points: Age 75 years or older Thrombosis Risk Factor Assessment Total Risk Factor Score: 5 Thrombosis Risk Factor Assessment Level: High Risk Assessment and Plan Plan: ASSESSMENT: Non-ST elevated myocardial infarction, present on admission, cardiology following Acute mild exacerbation of congestive heart failure, received lasix x 1 dose, type unknown, echo pending Elevated d-dimer, CT negative for pulmonary embolus Chronic atrial fibrillation, not on long-term anticoagulation secondary to history of GI bleed and intracranial bleed Coronary artery disease with previous CABG Hyperlipidemia Essential hypertension History of intercranial bleed with pierre hole procedure History of basal cell carcinoma of the face with skin grafting Osteoarthritis with previous bilateral total knee arthroplasty History of nicotine dependence, in remission PLAN: Cardiology on consult. Appreciate recommendations and input Aspirin, lipitor, and imdur per cardiology Discontinue heparin drip if okay with cardiology Await results of echocardiogram Home meds as appropriate Monitor labs GI prophylaxis: Protonix 40 mg PO Daily DVT prophylaxis: patient is currently on a heparin drip Monitor vital signs and address as appropriate Discharge planning: Patient to return home when stable Further recommendations pending patient's course Nurse practitioner note has been reviewed by physician. Signing provider agrees with the documented findings, assessment, and plan of care.
[2017-07-20] MEDS: HEPARIN SOD,PORK IN 0.45% NACL 25,000 UNIT in 0.45% NACL 1 500ML.BAG IV SCH (21:39)
[2017-07-21 06:56] LABS: Mean Platelet Volume 8.7; Platelet Count 177 k/uL (150-450)
[2017-07-21] MEDS ORDERED: PANTOPRAZOLE 40 MG TABLET PO SCH (07:30)
[2017-07-21] MEDS: ISOSORBIDE MONONITRATE ER 15 MG TAB PO SCH (08:19)
[2017-07-21] MEDS: CYANOCOBALAMIN 500 MCG TAB PO SCH (08:19)
[2017-07-21] MEDS: ATORVASTATIN 20 MG TAB PO SCH (08:19)
[2017-07-21 08:24] VITALS: RESP 18
[2017-07-21] MEDS ORDERED: ASPIRIN 81 MG PO SCH (09:00)
[2017-07-21 11:29] VITALS: BP 133/73; PULSE 83; TEMP 97.1
--- NOTE | 2017-07-21 12:48 | P.DS ---
Providers Date of admission: 07/21/17 09:23 Expected date of discharge: 07/21/17 Attending physician: Stuart Duncan Consults: 07/19/17 15:59 Consult Physician Urgent Consulting Provider: Leonarda Isabel Consult Reason/Comments: nstemi, chf, bradycardia Do you want consulting provider notified?: Yes 07/20/17 13:29 Consult Physician Routine Consulting Provider: John Benavides Consult Reason/Comments: possible right upper lobe mass Do you want consulting provider notified?: Yes Primary care physician: [facility] Course: This patient presented with dyspnea, and edema in bilateral lower extremes left greater than the right Patient has long-standing history of coronary artery disease patient also complained of upper chest pain radiating to left arm and was having some mild orthopnea patient denied cough denied fever or chills patient is returned from [place] approximately 2 days prior EKG chilled chronic A. fib with a controlled rate of [address] elevation chest x-ray showed increased density left lung base with obscured left hemidiaphragm and a mild pleural effusion CT of the chest showed no filling defects to suggest pulmonary edema. Patient is actually doing very well at this time and wishes to go home General: [Patient awake, alert and oriented times 3. Patient in no acute distress.] HEENT: [PERRL. EOMI. 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 No S3. No S4. No clicks, rubs. No murmur.] Lungs: [Clear to auscultation bilaterally.] Abdomen: [No mass. No organomegaly. Bowel sounds presnt and normoactive in all 4 quadrants.] Extremes: [No edema no cyanosis no claudication normal pulses] : [] Musculoskeletal: [No joint erythema, edema or tenderness.] Skin: [No rash.] Neurologic: [No lateralizing deficits. CN II - XII grossly intact.] Lymphatic: [No adenopathy.] Patient Condition at Discharge: Fair Plan - Discharge Summary Discharge Rx Participant: No New Discharge Prescriptions: No Action Aspirin 81 mg PO DAILY Ubidecarenone [Coenzyme Q10] 10 mg PO DAILY Garlic 1 tab PO DAILY Cyanocobalamin (Vitamin B-12) [Vitamin B-12] 1,000 mcg PO DAILY Discharge Medication List Aspirin 81 mg PO DAILY 06/27/14 [History] Garlic 1 tab PO DAILY 06/27/14 [History] Ubidecarenone [Coenzyme Q10] 10 mg PO DAILY 06/27/14 [History] Cyanocobalamin (Vitamin B-12) [Vitamin B-12] 1,000 mcg PO DAILY 07/19/17 [ History] Discharge Disposition: HOME SELF-CARE
--- NOTE | 2017-07-23 13:12 | ECHOF ---
Referral Reason: MEASUREMENTS -------- HEIGHT: 172.7 cm WEIGHT: 72.6 kg BP: 136/77 IVSd: 1.4 cm (0.6 - 1.1) LVIDd: 4.1 cm (3.9 - 5.3) LVPWd: 1.4 cm (0.6 - 1.1) IVSs: 1.7 cm LVIDs: 3.6 cm LVPWs: 1.9 cm LAESV Index (A-L): 50.76 ml/m Ao Diam: 3.2 cm (2.0 - 3.7) AV Cusp: 1.4 cm (1.5 - 2.6) LA Diam: 3.5 cm (2.7 - 3.8) MV EXCURSION: 12.495 mm (> 18.000) MV EF SLOPE: 40 mm/s (70 - 150) EPSS: 1.5 cm MV E Rayray: 0.87 m/s MV DecT: 182 ms MV A Rayray: 0.41 m/s MV E/A Ratio: 2.13 AV maxP.78 mmHg AV meanP.83 mmHg RAP: 5.00 mmHg RVSP: 13.59 mmHg FINDINGS -------- Resting bradycardia (HR<60bpm). This was a technically difficult study with suboptimal views. The left ventricular size is normal. There is moderate concentric left ventricular hypertrophy. T here is severe global hypokinesis of LV . Overall left ventricular systolic function is severely im paired with, an EF between 20 - 25 %. The right ventricle is normal in size and function. LA is severely dilated >40 ml/m2 The right atrium is mildly enlarged. 1.5mg of Definity was utilized for enhancement of images Aortic valve is trileaflet and is mildly thickened. There is mild aortic stenosis present. Peak/m molly gradient across the Aortic Valve is 14.78mmHg / 7.83mmHg. The mitral valve leaflets are mildly thickened. Mild mitral regurgitation is present. Mild tricuspid regurgitation present. The right ventricular systolic pressure, as measured by Doppl er, is 13.59mmHg. Pulmonic valve appears structurally normal. The aortic root size is normal. Normal inferior vena cava with normal inspiratory collapse consistent with estimated right atrial pre ssure of 5 mmHg. The pericardium is normal. CONCLUSIONS -------- 1. Resting bradycardia (HR<60bpm). 2. This was a technically difficult study with suboptimal views. 3. The left ventricular size is normal. 4. There is moderate concentric left ventricular hypertrophy. 5. The right ventricle is normal in size and function. 6. LA is severely dilated >40 ml/m2 7. The right atrium is mildly enlarged. 8. Lumason used 9. Aortic valve is trileaflet and is mildly thickened. 10. There is mild aortic stenosis present. 11. Peak/mean gradient across the Aortic Valve is 14.78mmHg / 7.83mmHg. 12. The mitral valve leaflets are mildly thickened. 13. Mild mitral regurgitation is present. 14. Mild tricuspid regurgitation present. 15. The right ventricular systolic pressure, as measured by Doppler, is 13.59mmHg. 16. Pulmonic valve appears structurally normal. 17. The aortic root size is normal. 18. Normal inferior vena cava with normal inspiratory collapse consistent with estimated right atrial pressure of 5 mmHg. 19. The pericardium is normal. [employer] OFFICER: Kate Rubio RDCS
--- NOTE | 2017-07-24 15:25 | CDI ---
Last Revision, April 2017 Documentation Clarification Form Date: 07/24/17 From: Meaganrohan Wallis Lashawn Ovalles, Energy Professional between 8:30 am & 5 pm MKuldeep Admit Date: 07/21/2017 9:23:00 AM Patient Name: Tai Marks Visit Number: [id number] Discharge Date: 07/21/17 ATTENTION: The Clinical Documentation Specialists (CDI) and [facility] Coding Staff appreciate your assistance in clarifying documentation. Please respond to the clarification below the line at the bottom and electronically sign. The CDI & [facility] Coding staff will review the response and follow-up if needed. Please note: Queries are made part of the Legal Health Record. If you have any questions, please contact the author of this message via ITS. Dr. John Lea Patient admitted with NSTEMI. CXR showed CHF. BNP is 3210. Echo: Moderate concentric left ventricular hypertrophy. Right ventricule is normal in size and function. Right ventricular systolic pressure by doppler, is 13.59 mmHg. Treated with on 07/19 Lasix IV 40 mg once, then Lasix 40 mg IV BID In your professional opinion, can you please clarify the acuity and type of CHF if known? Systolic Heart Failure: Acute Acute on Chronic Diastolic Heart Failure: Acute Acute on Chronic Systolic & Diastolic Heart Failure: Acute Acute on Chronic Heart Failure Unable to Determine Other, please specify Please continue to document in your progress notes and discharge summary in order to capture severity of illness and risk of mortality. Include clinical findings that support your diagnosis. MTDD
--- NOTE | 2017-08-06 09:34 | CDI ---
Last Revision, April 2017 Documentation Clarification Form Date: 08/06/17 From: Meaganrohan Wallis Lashawn Ovalles, Chalk Extruding Machine Operator between 8:30 am & 5 pm Lolita Admit Date: 07/21/2017 9:23:00 AM Patient Name: Tai Marks Visit Number: [id number] Discharge Date: 07/21/17 ATTENTION: The Clinical Documentation Specialists (CDI) and [facility] Coding Staff appreciate your assistance in clarifying documentation. Please respond to the clarification below the line at the bottom and electronically sign. The CDI & [facility] Coding staff will review the response and follow-up if needed. Please note: Queries are made part of the Legal Health Record. If you have any questions, please contact the author of this message via ITS. Dr. John Lea Patient admitted with NSTEMI. CXR showed CHF. BNP is 3210. Echo: Moderate concentric left ventricular hypertrophy. Right ventricle is normal in size and function. Right ventricular systolic pressure by doppler, is 13.59 mmHg. Treated with on 07/19 Lasix IV 40 mg once, then Lasix 40 mg IV BID In your professional opinion, can you please clarify the type and acuity of CHF if known? Type Systolic Heart Failure: Diastolic Heart Failure: Systolic & Diastolic Heart Failure: And Acuity Acute Acute on Chronic Chronic Unable to Determine Other, please specify Please continue to document in your progress notes and discharge summary in order to capture severity of illness and risk of mortality. Include clinical findings that support your diagnosis. MTDD
--- NOTE | 2017-08-17 08:13 | CDI ---
Last Revision, April 2017 Documentation Clarification Form (3rd time) Date: 08/17/17 From: Meagan Bimal Lashawn Ovalles, Clin Nurse between 8:30 am & 5 pm Lolita Admit Date: 07/21/2017 9:23:00 AM Patient Name: Tai Marks Visit Number: [id number] Discharge Date: 07/21/17 ATTENTION: The Clinical Documentation Specialists (CDI) and [facility] Coding Staff appreciate your assistance in clarifying documentation. Please respond to the clarification below the line at the bottom and electronically sign. The CDI & [facility] Coding staff will review the response and follow-up if needed. Please note: Queries are made part of the Legal Health Record. If you have any questions, please contact the author of this message via ITS. Dr. John Lea Patient admitted with NSTEMI. CXR showed CHF. BNP is 3210. Echo: Moderate concentric left ventricular hypertrophy. Right ventricule is normal in size and function. Right ventricular systolic pressure by doppler, is 13.59 mmHg. Treatment: on 07/19 Lasix IV 40 mg once, then Lasix 40 mg IV BID In your professional opinion, can you please clarify the acuity and type of CHF if known? Type Systolic Heart Failure: Diastolic Heart Failure: Systolic & Diastolic Heart Failure: AND Acuity Acute Acute on Chronic Chronic Unable to Determine Other, please specify . MTDD
--- NOTE | 2017-08-24 07:30 | CDI ---
Last Revision, April 2017 Documentation Clarification Form Date: 08/24/17 From: Meagan Wallis Lashawn Ovalles, Medical Sales Representative between 8:30 am & 5 pm MKuldeep Admit Date: 07/21/2017 9:23:00 AM Patient Name: Tai Marks Visit Number: [id number] Discharge Date: 07/21/17 ATTENTION: The Clinical Documentation Specialists (CDI) and [facility] Coding Staff appreciate your assistance in clarifying documentation. Please respond to the clarification below the line at the bottom and electronically sign. The CDI & [facility] Coding staff will review the response and follow-up if needed. Please note: Queries are made part of the Legal Health Record. If you have any questions, please contact the author of this message via ITS. Dr. Tyler Anguiano Patient admitted with NSTEMI. CXR showed CHF. BNP is 3210. Echo: Moderate concentric left ventricular hypertrophy. Right ventricule is normal in size and function. Right ventricular systolic pressure by doppler, is 13.59 mmHg. Treated with on 07/19 Lasix IV 40 mg once, then Lasix 40 mg IV BID In your professional opinion, can you please clarify the acuity and type of CHF if known? Type Systolic Heart Failure: Diastolic Heart Failure: Systolic & Diastolic Heart Failure: AND Acuity Acute Acute on Chronic Chronic Unable to Determine Other, please specify Please continue to document in your progress notes and discharge summary in order to capture severity of illness and risk of mortality. Include clinical findings that support your diagnosis. MTDD
--- NOTE | 2017-09-05 08:38 | CDI ---
Last Revision, April 2017 Documentation Clarification Form Date: 09/05/17 From: Meagan Wallis Lashawn Ovalles, Fancy Wire Drawer between 8:30 am & 5 pm Lolita Admit Date: 07/21/2017 9:23:00 AM Patient Name: Tai Marks Visit Number: [id number] Discharge Date: 07/21/17 ATTENTION: The Clinical Documentation Specialists (CDI) and [facility] Coding Staff appreciate your assistance in clarifying documentation. Please respond to the clarification below the line at the bottom and electronically sign. The CDI & [facility] Coding staff will review the response and follow-up if needed. Please note: Queries are made part of the Legal Health Record. If you have any questions, please contact the author of this message via ITS. Dr. Tyler Anguiano Patient admitted with NSTEMI. CXR showed CHF. BNP is 3210. Echo: Moderate concentric left ventricular hypertrophy. Right ventricle is normal in size and function. Right ventricular systolic pressure by doppler, is 13.59 mmHg. Treated with on 07/19 Lasix IV 40 mg once, then Lasix 40 mg IV BID In your professional opinion, can you please clarify the acuity and type of CHF if known? Type Systolic Heart Failure: Diastolic Heart Failure: Systolic & Diastolic Heart Failure: AND Acuity Acute Acute on Chronic Chronic Unable to Determine Other, please specify MTDD
--- NOTE | 2017-09-11 07:51 | CDI ---
Last Revision, April 2017 Documentation Clarification Form Date: 09/11/17 From: Meaganrohan Wallis Lashawn Ovalles, Tipple Operator between 8:30 am & 5 pm Lolita Admit Date: 07/21/2017 9:23:00 AM Patient Name: Tai Marks Visit Number: [id number] Discharge Date: 07/21/17 ATTENTION: The Clinical Documentation Specialists (CDI) and [facility] Coding Staff appreciate your assistance in clarifying documentation. Please respond to the clarification below the line at the bottom and electronically sign. The CDI & [facility] Coding staff will review the response and follow-up if needed. Please note: Queries are made part of the Legal Health Record. If you have any questions, please contact the author of this message via ITS. Dr. Tyler Anguiano Patient admitted with NSTEMI. CXR showed CHF. BNP is 3210. Echo: Moderate concentric left ventricular hypertrophy. Right ventricle is normal in size and function. Right ventricular systolic pressure by doppler, is 13.59 mmHg. Treated with on 07/19 Lasix IV 40 mg once, then Lasix 40 mg IV BID In your professional opinion, can you please clarify the acuity and type of CHF if known? Type Systolic Heart Failure: Diastolic Heart Failure: Systolic & Diastolic Heart Failure: Acuity Acute Acute on Chronic Chronic Unable to Determine Other, please specify Please continue to document in your progress notes and discharge summary in order to capture severity of illness and risk of mortality. Include clinical findings that support your diagnosis. MTDD
== END 2017-07-21 13:24 | disposition home or self-care (01) | DRG 280 ==
LOC: EC 12:06 → 6SEL 15:59 → OBSVTOIN 07-21 09:23
PROVIDERS: ADMIT Family Medicine; ATTEND Family Medicine
DX: I21.4 Non-ST elevation (NSTEMI) myocardial infarction (principal); I50.23 Acute on chronic systolic (congestive) heart failure; J98.11 Atelectasis; I11.0 Hypertensive heart disease with heart failure; I48.2 Chronic atrial fibrillation; J44.9 Chronic obstructive pulmonary disease, unspecified; E78.5 Hyperlipidemia, unspecified; I25.10 Atherosclerotic heart disease of native coronary artery without angina pectoris; F17.211 Nicotine dependence, cigarettes, in remission; I25.2 Old myocardial infarction; Z79.82 Long term (current) use of aspirin; Z79.899 Other long term (current) drug therapy; Z85.828 Personal history of other malignant neoplasm of skin; Z96.653 Presence of artificial knee joint, bilateral; Z95.1 Presence of aortocoronary bypass graft; Z86.69 Personal history of other diseases of the nervous system and sense organs; Z98.42 Cataract extraction status, left eye; Z98.41 Cataract extraction status, right eye; Z96.1 Presence of intraocular lens; Z82.49 Family history of ischemic heart disease and other diseases of the circulatory system
CPT/HCPCS: 36415; 71046; 71275; 80053; 80061; 82550; 82553; 83735; 83880; 84484; 85025; 85049; 85379; 85610; 85730; 87040; 93005; 93306; 93970; 96374; 96375; 99285

== ENCOUNTER 2017-11-05 15:21 | Emergency (ER) | payer MEDICARE ==
[2017-11-05 16:16] VITALS: RESP 16
[2017-11-05] MEDS ORDERED: GELATIN SPONGE,ABSORB (SMALL) 1 EACH SPONGE TOPICAL STA (16:46)
[2017-11-05] MEDS ORDERED: DIPH,PERTUS(ACELL)TETVAC-LF 0.5 ML VIAL IM ONE (16:52)
--- NOTE | 2017-11-05 17:22 | ED ---
General Adult HPI - General Chief complaint: Wound/Laceration Stated complaint: Lac/Hand Time Seen by Provider: 11/05/17 16:17 Source: patient, RN notes reviewed Mode of arrival: ambulatory Limitations: no limitations - History of Present Illness Initial comments: 87-year-old male presents to the emergency determine for a chief complaint of skin tear on the dorsal left hand 2 days ago. Patient states it had initially stopped bleeding but then he irritated it and it started bleeding again. Patient is on blood thinners. Patient states he tried to get it to stop bleeding but couldn't answer came to the emergency department. Patient denies any dizziness, chest pain. Patient states he has cleaned the wound multiple times.Patient has no other complaints at this time including shortness of breath , chest pain, abdominal pain, nausea or vomiting, headache, or visual changes. - Related Data Home Medications Medication Instructions Recorded Confirmed Aspirin 81 mg PO DAILY 06/27/14 11/05/17 Garlic 1 tab PO DAILY 06/27/14 11/05/17 Ubidecarenone [Coenzyme Q10] 10 mg PO DAILY 06/27/14 11/05/17 Cyanocobalamin (Vitamin B-12) 1,000 mcg PO DAILY 07/19/17 11/05/17 [Vitamin B-12] Lisinopril [Zestril] 2.5 mg PO DAILY 11/05/17 11/05/17 Metoprolol Tartrate [Lopressor] 12.5 mg PO BID 11/05/17 11/05/17 Rivaroxaban [Xarelto] 20 mg PO DAILY 11/05/17 11/05/17 Spironolactone [Aldactone] 25 mg PO DAILY 11/05/17 11/05/17 Allergies Allergy/AdvReac Type Severity Reaction Status Date / Time No Known Allergies Allergy Verified 11/05/17 16:28 Review of Systems ROS Statement: Those systems with pertinent positive or pertinent negative responses have been documented in the HPI. ROS Other: All systems not noted in ROS Statement are negative. Past Medical History Past Medical History: Atrial Fibrillation, Coronary Artery Disease (CAD), Cancer , Chest Pain / Angina, GI Bleed, Hyperlipidemia, Hypertension, Myocardial Infarction ([place]), Skin Disorder Additional Past Medical History / Comment(s): Intracranial bleed/hematoma status post bur hole, basal cell carcinoma of the face status post skin graft Last Myocardial Infarction Date:: 06/27/14 History of Any Multi-Drug Resistant Organisms: None Reported Past Surgical History: Cholecystectomy, Coronary Bypass/CABG, Orthopedic Surgery , Tonsillectomy Additional Past Surgical History / Comment(s): Bilateral total knee arthroplasty , R shoulder surgery, Skin grafting left arm to face for basal cell carcinoma, bilateral cataract removal and lens implants, bilateral eyelid lift Past Anesthesia/Blood Transfusion Reactions: No Reported Reaction Past Psychological History: No Psychological Hx Reported Smoking Status: Former smoker Past Alcohol Use History: None Reported Past Drug Use History: None Reported - Past Family History Father Family Medical History: Myocardial Infarction ([place]) Mother Family Medical History: Myocardial Infarction ([place]) Son(s) Family Medical History: Hypertension Additional Family Medical History / Comment(s): He has 6 children and one son has hypertension. Brother(s) Family Medical History: Asthma, Cancer, Coronary Artery Disease (CAD) Additional Family Medical History / Comment(s): Patient had 2 brothers and one is alive with a pacemaker, one has from lupus. Patient had 3 sisters one has from pancreatic cancer, one has from asthma complications, and one is alive with chronic back problems. General Exam Limitations: no limitations General appearance: alert, in no apparent distress Head exam: Present: atraumatic, normocephalic, normal inspection Eye exam: Present: normal appearance ENT exam: Present: normal exam, mucous membranes moist Neck exam: Present: normal inspection, full ROM. Absent: tenderness, meningismus, lymphadenopathy Respiratory exam: Present: normal lung sounds bilaterally. Absent: respiratory distress, wheezes, rales, rhonchi, stridor Cardiovascular Exam: Present: regular rate, normal rhythm, normal heart sounds. Absent: systolic murmur, diastolic murmur, rubs, gallop, clicks Extremities exam: Present: full ROM (Full range of motion of the left hand including flexion and extension of all digits and wrist.), normal capillary refill (Refill less than 2 seconds, radial pulse 2+ in the left upper extremity) , other (Patient has a 1 cm skin tear on the left dorsal hand. No cellulitic changes or signs of infection. No drainage. The wound is oozing somewhat but is not bleeding profusely.). Absent: tenderness (No tenderness of the left hand.) Course Vital Signs 11/05/17 16:14 Temperature 97 F L Pulse Rate 49 L Respiratory 16 Rate Blood Pressure 139/57 O2 Sat by Pulse 98 Oximetry Medical Decision Making - Medical Decision Making 87-year-old male presents to the emergency department for a chief complaint of skin tear that keeps bleeding. Skin tear happened 2 days ago. Patient denies any injury to the hand or pain to the hand. Patient is on blood thinners. Patient has full range of motion of the hand. No tenderness in the hand. Vascular intact. On exam there is a 1 cm skin tear to the dorsal left hand. Skin tear is oozing with blood somewhat but is not bleeding severely. Wound was cleaned and covered with Gelfoam. Patient will monitor for signs of infection such as spreading redness or streaking redness and return if these occur. Patient is aware to remove the wrap around his hand tomorrow and let the Gelfoam fall off on its own. He was given a tetanus in the emergency department. He will follow up with primary care in 1-2 days. He will return to the emergency department if he has any worsening symptoms. Disposition Clinical Impression: Skin tear Disposition: HOME SELF-CARE Condition: Good Instructions: Skin Tear (ED) Additional Instructions: Please take wrap off tomorrow. Please let the Gelfoam fall off on its own. Do not pull it off. Please return to the emergency department if you have any worsening symptoms including signs of infection such as spreading redness or streaking redness up the hand. Is patient prescribed a controlled substance at d/c from ED?: No Referrals: Tyler Anguiano Jr, [Primary Care Provider] - 1-2 days Time of Disposition: 17:21
[2017-11-05 17:38] VITALS: BP 139/71; PULSE 50; TEMP 98
== END 2017-11-05 17:37 | disposition home or self-care (01) ==
LOC: EC 15:21
DX: S61.412A Laceration without foreign body of left hand, initial encounter (principal); I48.91 Unspecified atrial fibrillation; I10 Essential (primary) hypertension; I25.10 Atherosclerotic heart disease of native coronary artery without angina pectoris; I25.2 Old myocardial infarction; Z87.891 Personal history of nicotine dependence; Z79.01 Long term (current) use of anticoagulants; Z79.82 Long term (current) use of aspirin; Z79.899 Other long term (current) drug therapy; Z86.79 Personal history of other diseases of the circulatory system; Z85.828 Personal history of other malignant neoplasm of skin; Z98.890 Other specified postprocedural states; Z23 Encounter for immunization; W19.XXXA Unspecified fall, initial encounter; Y92.009 Unspecified place in unspecified non-institutional (private) residence as the place of occurrence of the external cause
CPT/HCPCS: 90471; 90715; 99282

== ENCOUNTER → 2019-03-07 | Outpatient (CLI) | payer MEDICARE ==
--- NOTE | 2019-03-07 08:59 | US ---
EXAMINATION TYPE: US venous doppler duplex LE DATE OF EXAM: 03/07/2019 8:28 AM COMPARISON: NONE CLINICAL HISTORY: R22.42 swelling LL limb R22.41 swelling RL limb. Edema bilateral legs, greater on the left for 2 days SIDE PERFORMED: bilateral TECHNIQUE: The lower extremity deep venous system is examined utilizing real time linear array sonog sushma with graded compression, doppler sonography and color-flow sonography. VESSELS IMAGED: External Iliac Vein (EIV) Common Femoral Vein Deep Femoral Vein Greater Saphenous Vein * Femoral Vein Popliteal Vein Small Saphenous Vein * Proximal Calf Veins (* superficial vessels) Right Leg: No evidence of DVT Left Leg: No evidence of DVT Grayscale, color doppler, spectral doppler imaging performed of the deep veins of the bilateral lower extremities. There is normal flow, compressibility, vascular waveforms. IMPRESSION: No ultrasound evidence for acute DVT in bilateral lower extremities.
== END | disposition home or self-care (01) ==
LOC: RADUSMAIN 07:50
PROVIDERS: ATTEND Nurse Practitioner Family
DX: R22.43 Localized swelling, mass and lump, lower limb, bilateral (principal)
CPT/HCPCS: 93970

== ENCOUNTER → 2019-05-05 | Outpatient (CLI) | payer MEDICARE ==
--- NOTE | 2019-05-05 12:29 | CT ---
EXAMINATION TYPE: CT abdomen pelvis wo con DATE OF EXAM: 05/05/2019 COMPARISON: 03/17/2014 HISTORY: hematuria CT DLP: 806 mGycm Examination of the solid and hollow viscera is limited given the lack of contrast. FINDINGS: LUNG BASES: No evidence for nodule. No evidence for infiltrate. LIVER/GB: The gallbladder is surgically absent. No space-occupying hepatic lesion. PANCREAS: No pancreatic mass identified. No inflammatory process seen. SPLEEN: No evidence for splenomegaly. No intrasplenic lesions seen. ADRENALS: No adrenal nodules identified. No evidence for thickening. KIDNEYS: No evidence for renal mass. No nephrolithiasis. No hydronephrosis. Review Mural lesion identified within the urinary bladder right wall measuring 2.1 cm suspicious for neoplasm. Direct visualization and tissue diagnosis is advised. BOWEL: Appendix has a normal appearance. No evidence of bowel obstruction. No inflammatory process. Lymph nodes: No evidence for adenopathy greater than 1 cm. Abdominal aorta: Atheromatous changes seen. No evidence for aneurysm. Genital organs: No significant abnormality. Other: No significant abnormality. IMPRESSION: Review Mural lesion identified within the urinary bladder right wall measuring 2.1 cm suspicious for neoplasm. Direct visualization and tissue diagnosis is advised.
== END | disposition home or self-care (01) ==
LOC: RADCTMAIN 11:52
PROVIDERS: ATTEND Family Medicine
DX: N32.89 Other specified disorders of bladder (principal); R31.9 Hematuria, unspecified
CPT/HCPCS: 74176

== ENCOUNTER → 2019-05-21 | Outpatient (CLI) | payer MEDICARE ==
[2019-05-21 14:32] LABS: HCT 40.7 % (39.0-53.0); HGB 13.1 gm/dL (13.0-17.5); MCH 30.3 pg (25.0-35.0); MCHC 32.2 g/dL (31.0-37.0); MCV 94.1 fL (80.0-100.0); Mean Platelet Volume 8.8; Platelet Count 207 k/uL (150-450); RBC 4.33 m/uL (4.30-5.90); RDW 12.8 % (11.5-15.5)
[2019-05-21 18:54] LABS: African American GFR (CKD) 69.1 (60.0-200.0); Anion Gap 8.9 mmol/L (4.00-12.00); BUN/Creat Ratio 24.55 Ratio (12.00-20.00); Calcium 9.4 mg/dL (8.7-10.3); Carbon Dioxide 24.1 mmol/L (21.6-31.8); Non-African American GFR(CKD) 59.6 (60.0-200.0); Potassium 5.2 mmol/L (3.5-5.5)
== END | disposition home or self-care (01) ==
LOC: LABWHC1 13:51
PROVIDERS: ATTEND Urology
DX: D41.4 Neoplasm of uncertain behavior of bladder (principal)
CPT/HCPCS: 36415; 80048; 85027

== ENCOUNTER 2019-05-29 10:19 | Day surgery (SDC) | payer MEDICARE ==
[2019-05-23 12:05] VITALS: BMI 23.1
--- NOTE | 2019-05-27 10:04 | P.GSHP ---
History of Present Illness H&P Date: 05/27/19 Chief Complaint: Gross hematuria The patient is an 89-year-old white male with a one-month history of gross hematuria. A computed tomography scan of the abdomen and pelvis showed a 2.1 cm right lateral bladder wall mass. Office cystoscopy revealed a distal bulbous urethral stricture. He will undergo cystoscopy, direct visual internal urethrotomy (DVIU), and bladder tumor resection. - Constitutional Constitutional: Denies chills, Denies fever - Genitourinary (Female) Genitourinary: Reports hematuria, Denies dysuria, Denies flank pain Past Medical History Past Medical History: Atrial Fibrillation, Coronary Artery Disease (CAD), Cancer, Chest Pain / Angina, GI Bleed, Hearing Disorder / Deafness, Hyperlipidemia, Hypertension, Osteoarthritis (OA) Additional Past Medical History / Comment(s): Hx intracranial bleed/hematoma status post bur hole, hx skin cancer to face. Last Myocardial Infarction Date:: unknown History of Any Multi-Drug Resistant Organisms: None Reported Past Surgical History: Cholecystectomy, Coronary Bypass/CABG, Joint Replacement, Orthopedic Surgery, Tonsillectomy Additional Past Surgical History / Comment(s): Bilateral total knee replacements, right shoulder surgery, skin grafting left arm to face for basal cell carcinoma, bilateral cataract removal and lens implants, bilateral eyelid lift. Past Anesthesia/Blood Transfusion Reactions: No Reported Reaction Past Psychological History: No Psychological Hx Reported Smoking Status: Former smoker Past Alcohol Use History: None Reported Additional Past Alcohol Use History / Comment(s): Patient was a smoker of half pack per day for approximately 35 years and quit 45 years ago. Past Drug Use History: None Reported - Past Family History Father Family Medical History: Myocardial Infarction ([place]) Mother Family Medical History: Myocardial Infarction ([place]) Son(s) Family Medical History: Hypertension Additional Family Medical History / Comment(s): He has 6 children and one son has hypertension. Brother(s) Family Medical History: Asthma, Cancer, Coronary Artery Disease (CAD) Additional Family Medical History / Comment(s): Patient had 2 brothers and one is alive with a pacemaker, one has from Lupus. Patient had 3 sisters one has from pancreatic cancer, one has from asthma complications, and one is alive with chronic back problems. Medications and Allergies Home Medications Medication Instructions Recorded Confirmed Type Garlic 1 tab PO DAILY 06/27/14 05/23/19 History Cyanocobalamin (Vitamin B-12) 1,000 mcg PO DAILY 07/19/17 05/23/19 History [Vitamin B-12] Lisinopril [Zestril] 2.5 mg PO QAM 11/05/17 05/23/19 History Metoprolol Tartrate [Lopressor] 12.5 mg PO BID 11/05/17 05/23/19 History Rivaroxaban [Xarelto] 20 mg PO DAILY 11/05/17 05/23/19 History Spironolactone [Aldactone] 25 mg PO DAILY 11/05/17 05/23/19 History Allergies Allergy/AdvReac Type Severity Reaction Status Date / Time No Known Allergies Allergy Verified 05/23/19 11:23 Surgical - Exam - General well developed, well nourished, no distress - Neck no masses, trachea midline - Respiratory normal respiratory effort, clear to auscultation - Cardiovascular Rhythm: irregularly irregular Abnormal Heart Sounds: systolic murmur - Abdomen Abdomen: soft, non tender, no guarding, no rigid, no rebound - Genitourinary normal penis with no external lesions, testicles non-tender - Rectum Rectum: normal sphincter tone, no masses, other (Prostate mildly enlarged but smooth) - Psychiatric oriented to time, oriented to person, oriented to place, speech is normal, memory intact Assessment and Plan (1) Neoplasm of uncertain behavior of bladder Status: Acute Code(s): D41.4 - NEOPLASM OF UNCERTAIN BEHAVIOR OF BLADDER SNOMED Code(s): 70413029 (2) Unspecified bulbous urethral stricture, male Status: Acute Code(s): N35.912 - UNSPECIFIED BULBOUS URETHRAL STRICTURE, MALE SNOMED Code(s): 87322831 Plan: Cystoscopy, DVIU, transurethral resection of bladder tumor. The procedure has been reviewed in detail with the patient and his . They understand potential risks to include anesthesia, bleeding, infection, and bladder perforation.
[~2019-05-29 10:19] MED LIST: DEXAMETHASONE SOD PHOSPHATE 10 MG/ML 1 ML VIAL IV ONE; HYDROmorphone 0.5 MG/0.5 ML SYRINGE IVP PRN; LACTATED RINGERS 1,000 ML IV SCH; MIDAZOLAM 2 MG/2 ML VIAL IV PRN; ONDANSETRON 4 MG/2 ML VIAL IVP ONE
[2019-05-29 10:59] VITALS: BP 166/74; PULSE 71; RESP 18; TEMP 99.2
== END 2019-05-29 11:52 ==
LOC: OR 10:19
PROVIDERS: ATTEND Urology
DX: N32.89 Other specified disorders of bladder (principal); Z53.8 Procedure and treatment not carried out for other reasons; N35.912 Unspecified bulbous urethral stricture, male

== ENCOUNTER 2019-06-11 14:19 | Day surgery (SDC) | payer MEDICARE ==
[2019-06-06 11:40] VITALS: BMI 23.6
[~2019-06-11 14:19] MED LIST changes: -HYDROmorphone 0.5 MG/0.5 ML SYRINGE IVP PRN; -LACTATED RINGERS 1,000 ML IV SCH; +LIDOCAINE 1% 20 ML VIAL (10MG/ML) FOR IV START INTRADERMA PRN; -MIDAZOLAM 2 MG/2 ML VIAL IV PRN; +MORPHINE SULFATE 2 MG/ML SYRINGE IV PRN
[2019-06-11] MEDS: LACTATED RINGERS 1,000 ML IV SCH ×2 (14:52→15:19)
[2019-06-11 15:33] LABS: Basophils % (A) 1 %; Eosinophils % (A) 0 %; HCT 37.9 % (39.0-53.0); HGB 11.8 gm/dL (13.0-17.5); Lymphocytes # (A) 1.1 k/uL (1.0-4.8); Lymphocytes % (A) 16 %; MCH 28.4 pg (25.0-35.0); MCHC 31.1 g/dL (31.0-37.0); MCV 91.5 fL (80.0-100.0); Mean Platelet Volume 8.9; Monocytes # (A) 0.5 k/uL (0-1.0); Monocytes % (A) 7 %; Neutrophils # (A) 4.9 k/uL (1.3-7.7); Neutrophils % (A) 74 %; Platelet Count 227 k/uL (150-450); RBC 4.15 m/uL (4.30-5.90); RDW 12.7 % (11.5-15.5); WBC 6.6 k/uL (3.8-10.6)
[2019-06-11] MEDS ORDERED: ROCURONIUM BROMIDE 10 MG/ML 10 ML VIAL IV ONE (16:20)
[2019-06-11] MEDS ORDERED: SUCCINYLCHOLINE CHLORIDE 100 MG/5 ML SYR IV ONE (16:20)
[2019-06-11] MEDS ORDERED: fentaNYL (PF) 50 MCG/ML 2 ML AMP ONE (16:20)
[2019-06-11] MEDS ORDERED: GLYCOPYRROLATE 0.2 MG/ML 2 ML VIAL ONE (16:20)
[2019-06-11] MEDS ORDERED: NEOSTIGMINE 1 MG/ML 10 ML VIAL ONE (16:20)
[2019-06-11] MEDS ORDERED: LIDOCAINE 1% INJ 10MG/ML (20 ML MDV) ONE (16:20)
[2019-06-11] MEDS ORDERED: PROPOFOL 10 MG/ML 20 ML VIAL IV ONE (16:20)
--- NOTE | 2019-06-11 17:26 | P.OP ---
Date of Procedure: 06/11/19 Preoperative Diagnosis: Bulbous urethral stricture, bladder tumor Postoperative Diagnosis: Same Procedure(s) Performed: Cystoscopy, Direct Visual Internal Ureterotomy (DVIU), TURBT (Medium) Anesthesia: ARMIN Surgeon: Portillo Riley Estimated Blood Loss (ml): 10 IV fluids (ml): 500 Pathology: other (Right posterior bladder wall tumor) Condition: stable Disposition: PACU Indications for Procedure: The patient is an 89-year-old white male with a one-month history of gross hematuria. A CT scan of the abdomen and pelvis showed a 2.1 cm right lateral bladder wall mass. Office cystoscopy revealed a distal bulbous urethral stricture. He will undergo cystoscopy, direct visual internal urethrotomy (DVIU), and bladder tumor resection. Operative Findings: 1) Tight bulbous urethral stricture. 2) 2-3 cm papillary tumor just lateral to right ureteral orifice. Description of Procedure: The patient was taken in the operating room and placed in the dorsal lithotomy position, with his legs supported in Rudi stirrups. The external genitalia was prepped and draped sterilely. Wilburn sounds to used to dilate the urethral meatus. The visual urethrotome was advanced under direct vision. A tight stric ture was seen within the mid bulbous urethra. The half-ferrell cold knife was used to incise the urethra at the 12 o'clock position. The full-thickness of the stricture was incised. The stricture was approximately 1.5 cm in length. The 25-Algerian ACMI resectoscope sheath was introduced into the bladder under direct vision. The bladder was inspected. Both ureteral orifices were of normal anatomic location and configuration, and clear urine effluxed from both. The entire bladder was examined, revealing a 2-3 cm papillary tumor just lateral to the right ureteral orifice. This had a low-grade, noninvasive appearance. The prostate was partially obstructed, with a bilobar configuration. Using the bipolar cutting loop, the tumor was resected down to the muscle. Excellent hemostasis was attained. The resected tissue was saved and sent for pathologic examination. The right ureteral orifice was not resected. There was no evidence of bladder perforation. An 18-Algerian Bro catheter was inserted. The return was clear. The patient tolerated the procedure well. He was taken to the recovery room in stable condition.
[2019-06-11 17:32] VITALS: TEMP 97.7
[2019-06-11] MEDS: hydrALAZINE HCL 20 MG/ML 1 ML VIAL IV ONE ×2 (18:02→18:21)
[2019-06-11 18:34] VITALS: RESP 16
[2019-06-11 20:04] VITALS: BP 169/76; PULSE 58
== END 2019-06-11 19:55 | disposition home or self-care (01) ==
LOC: OR 14:19
PROVIDERS: ATTEND Urology
DX: C67.6 Malignant neoplasm of ureteric orifice (principal); N35.812 Other bulbous urethral stricture, male; I25.119 Atherosclerotic heart disease of native coronary artery with unspecified angina pectoris; I10 Essential (primary) hypertension; I08.0 Rheumatic disorders of both mitral and aortic valves; I44.1 Atrioventricular block, second degree; I48.11 Longstanding persistent atrial fibrillation; E78.5 Hyperlipidemia, unspecified; M19.90 Unspecified osteoarthritis, unspecified site; H91.90 Unspecified hearing loss, unspecified ear; Z85.828 Personal history of other malignant neoplasm of skin; Z87.19 Personal history of other diseases of the digestive system; Z86.79 Personal history of other diseases of the circulatory system; Z95.1 Presence of aortocoronary bypass graft; Z90.49 Acquired absence of other specified parts of digestive tract; Z96.653 Presence of artificial knee joint, bilateral; Z98.890 Other specified postprocedural states; Z98.42 Cataract extraction status, left eye; Z98.41 Cataract extraction status, right eye; Z96.1 Presence of intraocular lens; Z87.891 Personal history of nicotine dependence; Z82.49 Family history of ischemic heart disease and other diseases of the circulatory system; Z82.5 Family history of asthma and other chronic lower respiratory diseases; Z80.0 Family history of malignant neoplasm of digestive organs; Z79.899 Other long term (current) drug therapy; Z79.01 Long term (current) use of anticoagulants; Z79.82 Long term (current) use of aspirin
CPT/HCPCS: 52235; 84132; 85025; 88307; J0360; J1100; J2710; J0690; J2405; J2001; J3010; J0330; J2704

== ENCOUNTER → 2019-11-21 | Outpatient (CLI) | payer MEDICARE ==
--- NOTE | 2019-11-21 11:53 | XR ---
EXAMINATION TYPE: XR lumbar spine 2 or 3V DATE OF EXAM: 11/21/2019 CLINICAL HISTORY: pain TECHNIQUE: Three views of the lumbar spine are submitted. COMPARISON: None. FINDINGS: There are 5 lumbar type vertebral bodies identified. The lumbar spine shows satisfactory alignment w ithout evidence of acute fracture or dislocation. Vertebral body heights are within normal limits. Moderate to severe multilevel degenerative disc space narrowing and spondylosis. Grade 1 anterolisthe sis L4 and L5 of 2.4 mm and L5 on S1 of 8.4 mm. Severe facet joint arthropathy. The overlying soft ti ssue appears unremarkable. IMPRESSION: No acute fracture or dislocation is seen in the lumbar spine. ICD 10 NO FRACTURE, INITIAL EVALUATION
== END | disposition home or self-care (01) ==
LOC: RADXRMAIN 11:18
PROVIDERS: ATTEND Family Medicine
DX: M54.5 Low back pain (principal); R20.2 Paresthesia of skin
CPT/HCPCS: 72100

== ENCOUNTER → 2020-01-26 | Outpatient (CLI) | payer MEDICARE ==
[2020-01-26 13:13] LABS: Basophils % (A) 1 %; Eosinophils % (A) 0 %; HGB 12.3 gm/dL (13.0-17.5); Lymphocytes # (A) 1.3 k/uL (1.0-4.8); Lymphocytes % (A) 18 %; MCH 28.2 pg (25.0-35.0); MCHC 31.6 g/dL (31.0-37.0); MCV 89.1 fL (80.0-100.0); Mean Platelet Volume 8.6; Monocytes # (A) 0.6 k/uL (0-1.0); Monocytes % (A) 9 %; Neutrophils # (A) 4.7 k/uL (1.3-7.7); Neutrophils % (A) 69 %; Platelet Count 210 k/uL (150-450); RBC 4.37 m/uL (4.30-5.90); RDW 13.1 % (11.5-15.5); WBC 6.8 k/uL (3.8-10.6)
[2020-01-26 13:21] LABS: Calcium 9.3 mg/dL (8.4-10.2); Potassium 4.9 mmol/L (3.5-5.1)
== END | disposition home or self-care (01) ==
LOC: LABPAT 11:17
PROVIDERS: ATTEND Urology
DX: Z01.818 Encounter for other preprocedural examination (principal); C67.4 Malignant neoplasm of posterior wall of bladder
CPT/HCPCS: 36415; 80048; 85025

== ENCOUNTER 2020-02-05 10:30 | Day surgery (SDC) | payer MEDICARE ==
--- NOTE | 2020-01-29 20:23 | P.GSHP ---
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 Recent cystoscopy has shown 4 small tumors at the bladder dome. He now comes for excisional biopsies. He has a known urethral stricture. - Genitourinary (Male) Genitourinary: Denies dysuria, Denies hematuria Past Medical History Past Medical History: Atrial Fibrillation, Coronary Artery Disease (CAD), Cancer, Chest Pain / Angina, GI Bleed, Hearing Disorder / Deafness, Hyperlipidemia, Hypertension, Osteoarthritis (OA) Additional Past Medical History / Comment(s): Hx intracranial bleed/hematoma status post bur hole, hx skin cancer to face. Last Myocardial Infarction Date:: unknown History of Any Multi-Drug Resistant Organisms: None Reported Past Surgical History: Cholecystectomy, Coronary Bypass/CABG, Joint Replacement, Orthopedic Surgery, Tonsillectomy Additional Past Surgical History / Comment(s): Bilateral total knee replacements, right shoulder surgery, skin grafting left arm to face for basal cell carcinoma, bilateral cataract removal and lens implants, bilateral eyelid lift. Past Anesthesia/Blood Transfusion Reactions: No Reported Reaction Past Psychological History: No Psychological Hx Reported Past Alcohol Use History: None Reported Additional Past Alcohol Use History / Comment(s): Patient was a smoker of half pack per day for approximately 35 years and quit 45 years ago. Past Drug Use History: None Reported - Past Family History Father Family Medical History: Myocardial Infarction ([place]) Mother Family Medical History: Myocardial Infarction ([place]) Son(s) Family Medical History: Hypertension Additional Family Medical History / Comment(s): He has 6 children and one son has hypertension. Brother(s) Family Medical History: Asthma, Cancer, Coronary Artery Disease (CAD) Additional Family Medical History / Comment(s): Patient had 2 brothers and one is alive with a pacemaker, one has from Lupus. Patient had 3 sisters one has from pancreatic cancer, one has from asthma complications, and one is alive with chronic back problems. Medications and Allergies Home Medications Medication Instructions Recorded Confirmed Type Garlic 1 tab PO DAILY 06/27/14 06/11/19 History Cyanocobalamin (Vitamin B-12) 1,000 mcg PO DAILY 07/19/17 06/11/19 History [Vitamin B-12] Rivaroxaban [Xarelto] 20 mg PO DAILY 11/05/17 06/11/19 History Spironolactone [Aldactone] 25 mg PO DAILY 11/05/17 06/11/19 History lisinopriL [Zestril] 0.5 tab PO QAM 11/05/17 06/11/19 History Allergies Allergy/AdvReac Type Severity Reaction Status Date / Time No Known Allergies Allergy Verified 06/11/19 14:45 Surgical - Exam - General well developed, well nourished, no distress - Respiratory normal respiratory effort - Abdomen Abdomen: soft, non tender, no guarding, no rigid, no rebound - Genitourinary normal penis with no external lesions, testicles non-tender - Psychiatric oriented to time, oriented to person, oriented to place, speech is normal, memory intact Assessment and Plan (1) Unspecified bulbous urethral stricture, male Status: Acute Code(s): N35.912 - UNSPECIFIED BULBOUS URETHRAL STRICTURE, MALE SNOMED Code(s): 62872620237148167 (2) Malignant neoplasm of posterior wall of bladder Status: Acute Code(s): C67.4 - MALIGNANT NEOPLASM OF POSTERIOR WALL OF BLADDER SNOMED Code(s): 578533315 Plan: Cystoscopy with excisional biopsy. A direct visual internal urethrotomy may be required. The patient is aware of potential risks, which include anesthesia, bleeding, infection, and bladder perforation.
[2020-02-04 12:10] VITALS: BMI 21.2
[~2020-02-05 10:30] MED LIST changes: +HYDROmorphone 0.5 MG/0.5 ML SYRINGE IVP PRN; +LACTATED RINGERS 1,000 ML IV SCH; +LIDOCAINE 1% (10MG/ML) FOR IV START INTRADERMA PRN; -LIDOCAINE 1% 20 ML VIAL (10MG/ML) FOR IV START INTRADERMA PRN; -MORPHINE SULFATE 2 MG/ML SYRINGE IV PRN; -ONDANSETRON 4 MG/2 ML VIAL IVP ONE; +ONDANSETRON 4 MG/2 ML VIAL IVP PRN
[2020-02-05 11:05] VITALS: TEMP 97.4
[2020-02-05] MEDS ORDERED: KETAMINE 10 MG/ML 20 ML VIAL ONE (12:51)
[2020-02-05] MEDS ORDERED: MIDAZOLAM 2 MG/2 ML VIAL ONE (12:51)
[2020-02-05] MEDS ORDERED: PROPOFOL 10 MG/ML 20 ML VIAL IV ONE (12:51)
[2020-02-05] MEDS ORDERED: fentaNYL (PF) 50 MCG/ML 2 ML AMP ONE (12:51)
[2020-02-05] MEDS ORDERED: ceFAZolin 1,000 MG VIAL IVPB ONE (12:58)
[2020-02-05] MEDS ORDERED: LIDOCAINE VISCOUS 2% 15 ML CUP TOPICAL ONE (13:10)
--- NOTE | 2020-02-05 13:39 | P.OP ---
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 Recent cystoscopy has shown 4 small tumors at the bladder dome. He now comes for excisional biopsies. He has a known urethral stricture. Operative Findings: 4 small papillary tumors at bladder dome. Description of Procedure: The patient was taken to the operating room and placed in the dorsal lithotomy position, with legs supported in Rudi stirrups. The external genitalia was prepped and draped sterilely. The 30 lens was used to introduce the 22-Albanian Stortz cystoscopic sheath through the urethra and into the bladder under direct vision. The urethra appeared normal. The prostate showed evidence of lateral lobe enlargement consistent with the patient's age. The bladder was examined in its entirety. The ureteral orifices appeared normal. There were no calculi. 4 small papillary tumors were seen at the bladder dome, all having a low-grade, noninvasive appearance. Using the cold cup biopsy forceps, each of the tumors were excised. The Bugbee electrode was used to fulgurate the biopsy sites, attaining excellent hemostasis. The tumors were removed in their entirety. T here was no active bleeding, and no evidence of bladder perforation. The patient tolerated the procedure well was taken to the recovery room in stable condition.
[2020-02-05 14:20] VITALS: RESP 16
[2020-02-05 14:39] VITALS: BP 15/104
[2020-02-05 14:58] VITALS: PULSE 62
== END 2020-02-05 16:06 | disposition home or self-care (01) ==
LOC: OR 10:30
PROVIDERS: ATTEND Urology
DX: C67.1 Malignant neoplasm of dome of bladder (principal); N35.912 Unspecified bulbous urethral stricture, male; I48.91 Unspecified atrial fibrillation; I25.10 Atherosclerotic heart disease of native coronary artery without angina pectoris; H91.90 Unspecified hearing loss, unspecified ear; E78.5 Hyperlipidemia, unspecified; I10 Essential (primary) hypertension; M19.90 Unspecified osteoarthritis, unspecified site; I25.2 Old myocardial infarction; Z86.69 Personal history of other diseases of the nervous system and sense organs; Z85.828 Personal history of other malignant neoplasm of skin; Z87.19 Personal history of other diseases of the digestive system; Z90.49 Acquired absence of other specified parts of digestive tract; Z95.1 Presence of aortocoronary bypass graft; Z96.653 Presence of artificial knee joint, bilateral; Z98.42 Cataract extraction status, left eye; Z98.41 Cataract extraction status, right eye; Z96.1 Presence of intraocular lens; Z99.2 Dependence on renal dialysis; Z87.891 Personal history of nicotine dependence; Z82.49 Family history of ischemic heart disease and other diseases of the circulatory system; Z80.0 Family history of malignant neoplasm of digestive organs; Z82.5 Family history of asthma and other chronic lower respiratory diseases; Z83.2 Family history of diseases of the blood and blood-forming organs and certain disorders involving the immune mechanism; Z79.01 Long term (current) use of anticoagulants; Z79.899 Other long term (current) drug therapy
CPT/HCPCS: 88305; 52224; J2250; J1100; J2405; J0690; J3010; J2704

== ENCOUNTER → 2020-05-27 | Outpatient (CLI) | payer MEDICARE ==
[2020-05-27 12:53] LABS: Basophils % (A) 0 %; Eosinophils % (A) 0 %; HCT 32.7 % (39.0-53.0); HGB 10.3 gm/dL (13.0-17.5); Hypochromasia Marked; Lymphocytes # (A) 0.9 k/uL (1.0-4.8); Lymphocytes % (A) 16 %; MCH 26.1 pg (25.0-35.0); MCHC 31.5 g/dL (31.0-37.0); MCV 82.9 fL (80.0-100.0); Mean Platelet Volume 8.3; Monocytes # (A) 0.6 k/uL (0-1.0); Monocytes % (A) 10 %; Neutrophils % (A) 72 %; Platelet Count 196 k/uL (150-450); RBC 3.95 m/uL (4.30-5.90); RDW 15.2 % (11.5-15.5); WBC 5.7 k/uL (3.8-10.6)
[2020-05-27 13:42] LABS: Calcium 8.6 mg/dL (8.4-10.2); Potassium 4.2 mmol/L (3.5-5.1)
== END | disposition home or self-care (01) ==
LOC: LABPAT 11:17
PROVIDERS: ATTEND Urology
DX: Z01.818 Encounter for other preprocedural examination (principal); C67.9 Malignant neoplasm of bladder, unspecified; N35.912 Unspecified bulbous urethral stricture, male
CPT/HCPCS: 36415; 80048; 85025

== ENCOUNTER 2020-06-03 06:57 | Day surgery (SDC) | payer MEDICARE ==
[2020-05-26 13:44] VITALS: BMI 24.0
--- NOTE | 2020-05-29 16:25 | P.GSHP ---
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 He underwent excisional biopsy of several recurrent tumors at the bladder dome in January 2020, again revealing TA grade 1 urothelial carcinoma. Recent cystoscopy has shown several tumors at the vesicle neck. He now comes for resection, and mitomycin C will be instilled into the bladder to reduce the likelihood of tumor recurrence. He has a known urethral stricture and may require an internal urethrotomy. - Constitutional Constitutional: Denies chills, Denies fever - Genitourinary (Male) Genitourinary: Denies dysuria, Denies hematuria Past Medical History Past Medical History: Atrial Fibrillation, Coronary Artery Disease (CAD), Cancer, Chest Pain / Angina, GI Bleed, Hearing Disorder / Deafness, Hyperlipidemia, Hypertension, Osteoarthritis (OA) Additional Past Medical History / Comment(s): bladder CA, Hx intracranial bleed/hematoma status post bur [id number]-no seizures, hx skin cancer to face,oral [id number] received-difficulty speaking at times no difficulty swallowing meds-follows soft diet Last Myocardial Infarction Date:: unknown History of Any Multi-Drug Resistant Organisms: None Reported Past Surgical History: Cholecystectomy, Coronary Bypass/CABG, Joint Replacement, Orthopedic Surgery, Tonsillectomy Additional Past Surgical History / Comment(s): Bilateral total knee replacements, right shoulder surgery, skin grafting left arm to face for basal cell carcinoma, bilateral cataract removal and lens implants, bilateral eyelid lift,bladder bx Past Anesthesia/Blood Transfusion Reactions: No Reported Reaction Additional Past Anesthesia/Blood Transfusion Reaction / Comment(s): no problems with prior blood transfusion Smoking Status: Former smoker - Past Family History Father Family Medical History: Myocardial Infarction ([place]) Mother Family Medical History: Myocardial Infarction ([place]) Son(s) Family Medical History: Hypertension Additional Family Medical History / Comment(s): He has 6 children and one son has hypertension. Brother(s) Family Medical History: Asthma, Cancer, Coronary Artery Disease (CAD) Additional Family Medical History / Comment(s): Patient had 2 brothers and one is alive with a pacemaker, one has from Lupus. Patient had 3 sisters one has from pancreatic cancer, one has from asthma complications, and one is alive with chronic back problems. Medications and Allergies Home Medications Medication Instructions Recorded Confirmed Type Garlic 1 tab PO DAILY 06/27/14 05/26/20 History Cyanocobalamin (Vitamin B-12) 1,000 mcg PO DAILY 07/19/17 05/26/20 History [Vitamin B-12] Aspirin 81 mg PO DAILY 05/26/20 05/27/20 History Carvedilol [Coreg] 3.125 mg PO BID 05/26/20 05/27/20 History Ferrous Sulfate [Feosol] 325 mg PO DAILY 05/26/20 05/26/20 History Vitamin B Complex 1 each PO DAILY 05/26/20 05/26/20 History levETIRAcetam [Keppra] 500 mg PO Q12HR 05/26/20 05/27/20 History Allergies Allergy/AdvReac Type Severity Reaction Status Date / Time No Known Allergies Allergy Verified 05/26/20 13:00 Surgical - Exam - General well developed, well nourished, no distress - Respiratory normal respiratory effort - Abdomen Abdomen: soft, non tender, no guarding, no rigid, no rebound - Genitourinary normal penis with no external lesions, testicles non-tender - Psychiatric oriented to time, oriented to person, oriented to place, speech is normal, memory intact Assessment and Plan (1) Malignant neoplasm of bladder, unspecified Status: Acute Code(s): C67.9 - MALIGNANT NEOPLASM OF BLADDER, UNSPECIFIED SNOMED Code(s): 474835370 Plan: Cystoscopy, possible internal urethrotomy, TURBT, instillation of intravesical mitomycin C. The patient is aware of potential risks, which include anesthesia, bleeding, infection, and bladder perforation. He is also aware that some patients experience increased voiding symptoms as a result of the mitomycin-C instillation.
[~2020-06-03 06:57] MED LIST changes: -DEXAMETHASONE SOD PHOSPHATE 10 MG/ML 1 ML VIAL IV ONE; -HYDROmorphone 0.5 MG/0.5 ML SYRINGE IVP PRN; +ONDANSETRON 4 MG/2 ML VIAL IVP ONE; -ONDANSETRON 4 MG/2 ML VIAL IVP PRN; +mitoMYcin 20 MG in EMPTY SYRINGE 1 SYR MISCELLANE PRN
[2020-06-03] MEDS ORDERED: HYDROmorphone 0.5 MG/0.5 ML SYRINGE IVP PRN (07:00)
[2020-06-03] MEDS ORDERED: DEXAMETHASONE SOD PHOSPHATE 4 MG/ML 1 ML VIAL IV ONE (07:45)
[2020-06-03 07:48] LABS: Glucose,Whole Blood 101 mg/dL (75-99)
[2020-06-03 08:00] LABS: INR 1.1 (<1.2); Prothrombin Time 11.8 sec (9.0-12.0)
[2020-06-03] MEDS ORDERED: ETOMIDATE 2 MG/ML 10 ML VIAL ONE (08:21)
[2020-06-03] MEDS ORDERED: SUCCINYLCHOLINE CHLORIDE 100 MG/5 ML SYR IV ONE (08:21)
[2020-06-03] MEDS ORDERED: fentaNYL (PF) 50 MCG/ML 2 ML AMP ONE (08:21)
[2020-06-03] MEDS ORDERED: BACITRACIN ZINC 500 UNIT/GM OINT 28.4 GM TUBE TOPICAL ONE (08:59)
[2020-06-03 09:36] VITALS: TEMP 97.2
--- NOTE | 2020-06-03 11:13 | P.OP ---
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 He underwent excisional biopsy of several recurrent tumors at the bladder dome in January 2020, again revealing TA grade 1 urothelial carcinoma. Recent cystoscopy has shown several tumors at the vesical neck. He now comes for resection, and mitomycin C will be instilled into the bladder to reduce the likelihood of tumor recurrence. He has a known urethral stricture and may require an internal urethrotomy. Operative Findings: Bulbous urethral stricture. Multiple superficial tumors at vesical neck and trigone. Description of Procedure: The patient was taken to the operating room and placed in the dorsal lithotomy position, with legs supported in Rudi stirrups. The external genitalia was prepped and draped sterilely. The 0 degree lens was used to advance the visual urethrotome under direct vision. The bulbous urethral stricture was encountered, which was incised at the 12 o'clock position using the half-ferrell knife. The Jose urethrotome was then used to incise the distal urethra at the 12 o'clock position, and the 25-[place] ACMI resectoscope sheath was then passed into the bladder. The prostatic urethra was unremarkable, showing evidence of mild lateral lobe enlargement with no urothelial changes. The bladder was examined in its entirety. The ureteral orifices appeared normal. There were no calculi. Several small papillary tumors were seen at the vesical neck anteriorly, posteriorly, and on the left lateral vesical neck. An additional tumor was identified on the bladder trigone. This tumor measured approximately 2 cm in diameter; the others were smaller. All had the appearance of low-grade superficial urothelial carcinoma. The bipolar resectoscope was used to resect all of the tumors in their entirety, down to the superficial muscle. The resected tissue was saved and sent to pathology. The resection beds were fulgurated, attaining excellent hemostasis. There was no concern of bladder perforation. The resectoscope was removed, and a Bro catheter was placed. 20 mg of mitomycin C were instilled into the bladder. The Bro catheter was then clamped. The patient tolerated the procedure well was taken to the recovery room in stable condition.
[2020-06-03 13:48] VITALS: BP 163/85; PULSE 55; RESP 20
== END 2020-06-03 12:55 | disposition home or self-care (01) ==
LOC: OR 06:57
PROVIDERS: ATTEND Urology
DX: C67.0 Malignant neoplasm of trigone of bladder (principal); C67.5 Malignant neoplasm of bladder neck; N35.912 Unspecified bulbous urethral stricture, male; I10 Essential (primary) hypertension; I25.10 Atherosclerotic heart disease of native coronary artery without angina pectoris; I48.91 Unspecified atrial fibrillation; R47.9 Unspecified speech disturbances; H91.90 Unspecified hearing loss, unspecified ear; E78.5 Hyperlipidemia, unspecified; M19.90 Unspecified osteoarthritis, unspecified site; K08.89 Other specified disorders of teeth and supporting structures; Z95.1 Presence of aortocoronary bypass graft; Z87.820 Personal history of traumatic brain injury; Z91.81 History of falling; Z85.819 Personal history of malignant neoplasm of unspecified site of lip, oral cavity, and pharynx; Z92.3 Personal history of irradiation; Z87.19 Personal history of other diseases of the digestive system; Z85.828 Personal history of other malignant neoplasm of skin; Z90.49 Acquired absence of other specified parts of digestive tract; Z96.653 Presence of artificial knee joint, bilateral; Z98.890 Other specified postprocedural states; Z90.89 Acquired absence of other organs; Z98.41 Cataract extraction status, right eye; Z98.42 Cataract extraction status, left eye; Z96.1 Presence of intraocular lens; Z87.891 Personal history of nicotine dependence; Z79.82 Long term (current) use of aspirin; Z79.899 Other long term (current) drug therapy; Z82.49 Family history of ischemic heart disease and other diseases of the circulatory system; Z82.69 Family history of other diseases of the musculoskeletal system and connective tissue; Z80.0 Family history of malignant neoplasm of digestive organs; Z82.5 Family history of asthma and other chronic lower respiratory diseases
CPT/HCPCS: 85610; 88307; 52276; 52234; J1100; J2405; J0690; J9280; J3010; J0330

== ENCOUNTER → 2020-06-07 | Outpatient (CLI) | payer MEDICARE ==
--- NOTE | 2020-06-07 14:58 | CT ---
EXAMINATION TYPE: CT brain wo con DATE OF EXAM: 06/07/2020 COMPARISON: 11/22/2012 HISTORY: hematoma CT DLP: [address] of the brain was performed. The ventricles, basal cisterns and sulci overlying the cerebral convexities demonstrate mild enlargem ent. There is no evidence for intracranial hemorrhage or sulcal effacement. There is decreased attenuation about the periventricular white matter and deep white matter of both c erebral hemispheres, compatible with chronic small vessel ischemia. Differential diagnosis does inclu de demyelination. No mass effects are seen.No midline shift. Left-sided pierre holes are redemonstrated. If symptoms persist consider MRI. IMPRESSION: 1. Age related atrophic and chronic small vessel ischemic change without acute intracranial process s een at this time.
== END | disposition home or self-care (01) ==
LOC: RADCTMAIN 14:23
PROVIDERS: ATTEND Psychiatry & Neurology Neurology
DX: I67.82 Cerebral ischemia (principal); G31.1 Senile degeneration of brain, not elsewhere classified
CPT/HCPCS: 70450

== ENCOUNTER 2020-06-08 21:43 | Emergency (ER) | payer MEDICARE ==
[2020-06-08 21:50] VITALS: BP 186/82; PULSE 73; RESP 16; TEMP 97.8
--- NOTE | 2020-06-08 22:22 | ED ---
Male Urogenital HPI - General Chief complaint: Urogenital Stated complaint: Bleeding catheter Time Seen by Provider: 06/08/20 21:59 Source: patient, family Mode of arrival: wheelchair Limitations: no limitations - History of Present Illness Initial comments: Patient is an 89-year-old man brought to have evaluation for some bleeding around his Bro catheter. The patient had cystoscopy performed on June 03 for bladder cancer, the catheter has been in place since the procedure, and tonight he developed some blood passing around the catheter resulting in a clot on the catheter. He is here with a caregiver who was concerned because she states that did seem like there was an excessive amount of blood passing out around the catheter. The patient denies having any discomfort. Nor is he having any symptoms of anemia. No lightheadedness, chest pain, dyspnea, diaphoresis, palpitations or syncope. MD Complaint: other Onset/Timin -: hour(s) Location: penis Radiation: none Severity scale (1-10): 0 Consistency: constant Improves with: none Worsens with: none Reports: blood in urine - Related Data Home Medications Medication Instructions Recorded Confirmed Garlic 1 tab PO DAILY 06/27/14 06/08/20 Cyanocobalamin (Vitamin B-12) 1,000 mcg PO DAILY 07/19/17 06/08/20 [Vitamin B-12] Aspirin 81 mg PO DAILY 05/26/20 06/08/20 Carvedilol [Coreg] 3.125 mg PO BID 05/26/20 06/08/20 Ferrous Sulfate [Feosol] 325 mg PO DAILY 05/26/20 06/08/20 Vitamin B Complex 1 tab PO DAILY 05/26/20 06/08/20 levETIRAcetam [Keppra] 500 mg PO Q12HR 05/26/20 06/08/20 Clotrimazole [Clotrimazole AF] 1 applic TOPICAL BID 06/08/20 06/08/20 Previous Rx's Medication Instructions Recorded Ciprofloxacin HCl [Cipro] 500 mg PO Q12HR 1 Days #10 tab 06/08/20 Allergies Allergy/AdvReac Type Severity Reaction Status Date / Time No Known Allergies Allergy Verified 06/08/20 22:24 Review of Systems ROS Statement: Those systems with pertinent positive or pertinent negative responses have been documented in the HPI. ROS Other: All systems not noted in ROS Statement are negative. Constitutional: Denies: fever, chills Respiratory: Denies: cough, dyspnea Cardiovascular: Denies: chest pain, palpitations, edema, syncope Gastrointestinal: Denies: abdominal pain, vomiting, diarrhea, melena, hematochezia Genitourinary: Reports: as per HPI, other (Blood around catheter). Denies: hematuria, testicular pain Musculoskeletal: Denies: back pain Skin: Denies: rash Neurological: Denies: headache, weakness, numbness Hematological/Lymphatic: Denies: easy bleeding Past Medical History Past Medical History: Atrial Fibrillation, Coronary Artery Disease (CAD), Cancer, Chest Pain / Angina, GI Bleed, Hearing Disorder / Deafness, Hyperlipidemia, Hypertension, Osteoarthritis (OA) Additional Past Medical History / Comment(s): Hx intracranial bleed/hematoma status post bur [id number]-no seizures, hx skin cancer to face,oral [id number] received-diffeiculty speaking at times no difficulty swallowing meds-follows soft diet Last Myocardial Infarction Date:: unknown History of Any Multi-Drug Resistant Organisms: None Reported Past Surgical History: Cholecystectomy, Coronary Bypass/CABG, Joint Replacement, Orthopedic Surgery, Tonsillectomy Additional Past Surgical History / Comment(s): Bilateral total knee replacements, right shoulder surgery, skin grafting left arm to face for basal cell carcinoma, bilateral cataract removal and lens implants, bilateral eyelid lift,bladder bx Past Anesthesia/Blood Transfusion Reactions: No Reported Reaction Additional Past Anesthesia/Blood Transfusion Reaction / Comment(s): no problems with prior blood transfusion Past Psychological History: No Psychological Hx Reported Smoking Status: Former smoker Past Alcohol Use History: None Reported Past Drug Use History: None Reported - Past Family History Father Family Medical History: Myocardial Infarction ([place]) Mother Family Medical History: Myocardial Infarction ([place]) Son(s) Family Medical History: Hypertension Additional Family Medical History / Comment(s): He has 6 children and one son has hypertension. Brother(s) Family Medical History: Asthma, Cancer, Coronary Artery Disease (CAD) Additional Family Medical History / Comment(s): Patient had 2 brothers and one is alive with a pacemaker, one has from Lupus. Patient had 3 sisters one has from pancreatic cancer, one has from asthma complications, and one is alive with chronic back problems. General Exam Limitations: no limitations General appearance: alert, in no apparent distress Head exam: Present: atraumatic, normocephalic Eye exam: Present: normal appearance Respiratory exam: Present: normal lung sounds bilaterally. Absent: respiratory distress, wheezes, rales, rhonchi, stridor Cardiovascular Exam: Present: regular rate, normal rhythm, normal heart sounds. Absent: systolic murmur, diastolic murmur, rubs, gallop GI/Abdominal exam: Present: soft. Absent: distended, tenderness, guarding, rebound, rigid, mass exam: Present: normal inspection, other (There is fully catheter present with blood clot surrounding it, probably a total of 3-5 mL in volume.). Absent: scrotal swelling, circumcision Extremities exam: Present: normal inspection. Absent: pedal edema Skin exam: Present: warm, dry, intact, normal color. Absent: rash Course Vital Signs 06/08/20 21:46 Temperature 97.8 F Pulse Rate 73 Respiratory 16 Rate Blood Pressure 186/82 O2 Sat by Pulse 92 L Oximetry Medical Decision Making - Lab Data Result diagrams: 06/08/20 22:22 Lab Results 06/08/20 06/08/20 06/08/20 Range/Units 22:22 22:22 22:47 WBC 5.9 (3.8-10.6) k/uL RBC 4.17 L (4.30-5.90) m/uL Hgb 10.2 L (13.0-17.5) gm/dL Hct 32.5 L (39.0-53.0) % MCV 77.9 L D (80.0-100.0) fL MCH 24.5 L (25.0-35.0) pg MCHC 31.4 (31.0-37.0) g/dL RDW 15.4 (11.5-15.5) % Plt Count 206 (150-450) k/uL MPV 8.6 Neutrophils % 69 % Lymphocytes % 19 % Monocytes % 9 % Eosinophils % 0 % Basophils % 1 % Neutrophils # 4.1 (1.3-7.7) k/uL Lymphocytes # 1.1 (1.0-4.8) k/uL Monocytes # 0.6 (0-1.0) k/uL Eosinophils # 0.0 (0-0.7) k/uL Basophils # 0.0 (0-0.2) k/uL Hypochromasia Slight Microcytosis Slight PT 11.7 (9.0-12.0) sec INR 1.1 (<1.2) APTT 35.8 H (22.0-30.0) sec Urine Color Red Urine Appearance Cloudy (Clear) Urine pH 7.5 (5.0-8.0) Ur Specific [place] 1.015 (1.001-1.035) Urine Protein 2+ H (Negative) Urine Glucose (UA) Negative (Negative) Urine Ketones Negative (Negative) Urine Blood Large H (Negative) Urine Nitrite Negative (Negative) Urine Bilirubin Negative (Negative) Urine Urobilinogen <2.0 (<2.0) mg/dL Ur Leukocyte Esterase Large H (Negative) Urine RBC >182 H (0-5) /hpf Urine WBC 53 H (0-5) /hpf Disposition Clinical Impression: Urinary tract infection, Hematuria Disposition: HOME SELF-CARE Condition: Good Instructions (If sedation given, give patient instructions): Urinary Tract Infection in Men (ED) Prescriptions: Ciprofloxacin HCl [Cipro] 500 mg PO Q12HR 1 Days #10 tab Is patient prescribed a controlled substance at d/c from ED?: No Referrals: Tyler Anguiano Jr, [Primary Care Provider] - 1-2 days
[2020-06-08 22:48] LABS: INR 1.1 (<1.2); Partial Thromboplastin Time 35.8 sec (22.0-30.0); Prothrombin Time 11.7 sec (9.0-12.0)
[2020-06-08 22:50] LABS: Basophils % (A) 1 %; Eosinophils % (A) 0 %; HCT 32.5 % (39.0-53.0); HGB 10.2 gm/dL (13.0-17.5); Hypochromasia Slight; Lymphocytes # (A) 1.1 k/uL (1.0-4.8); Lymphocytes % (A) 19 %; MCH 24.5 pg (25.0-35.0); MCHC 31.4 g/dL (31.0-37.0); Mean Platelet Volume 8.6; Microcytosis Slight; Monocytes # (A) 0.6 k/uL (0-1.0); Monocytes % (A) 9 %; Neutrophils # (A) 4.1 k/uL (1.3-7.7); Neutrophils % (A) 69 %; Platelet Count 206 k/uL (150-450); RBC 4.17 m/uL (4.30-5.90); RDW 15.4 % (11.5-15.5); WBC 5.9 k/uL (3.8-10.6)
[2020-06-08 22:52] LABS: MCV 77.9 fL (80.0-100.0)
[2020-06-08 22:57] LABS: Appearance,Urine Cloudy (Clear); Bilirubin,Urine Negative (Negative); Blood,Urine Large (Negative); Color,Urine Red; Glucose,Urine (UA) Negative (Negative); Ketones,Urine Negative (Negative); Leukocyte Esterase,Urine Large (Negative); Nitrite,Urine Negative (Negative); PH, Urine 7.5 (5.0-8.0); Protein,Urine 2+ (Negative); RBC,Urine >182 /hpf (0-5); Specific Gravity,Urine 1.015 (1.001-1.035); Urobilinogen,Urine <2.0 mg/dL (<2.0); WBC,Urine 53 /hpf (0-5)
== END 2020-06-08 23:33 | disposition home or self-care (01) ==
LOC: EC 21:43
DX: N39.0 Urinary tract infection, site not specified (principal); C67.9 Malignant neoplasm of bladder, unspecified; Z87.891 Personal history of nicotine dependence; Z85.828 Personal history of other malignant neoplasm of skin; Z92.21 Personal history of antineoplastic chemotherapy; Z79.82 Long term (current) use of aspirin; Z79.899 Other long term (current) drug therapy; Z79.51 Long term (current) use of inhaled steroids; Z96.653 Presence of artificial knee joint, bilateral
CPT/HCPCS: 36415; 81001; 85025; 85610; 85730; 99283

== ENCOUNTER → 2020-08-19 | Outpatient (CLI) | payer MEDICARE ==
--- NOTE | 2020-08-19 10:51 | XR ---
EXAMINATION TYPE: XR hand complete RT DATE OF EXAM: 08/19/2020 CLINICAL HISTORY: pain TECHNIQUE: Frontal, lateral and oblique images of the right hand are obtained. COMPARISON: None. FINDINGS: There is no acute fracture/dislocation evident. The joint spaces appear mildly narrowed. T he overlying soft tissue appears unremarkable. IMPRESSION: There is no acute fracture or dislocation ICD 10 NO FRACTURE, INITIAL EVALUATION
== END | disposition home or self-care (01) ==
LOC: RADXRMAIN 10:02
PROVIDERS: ATTEND Family Medicine
DX: M79.641 Pain in right hand (principal)

== ENCOUNTER → 2021-01-27 | Outpatient (CLI) | payer MEDICARE ==
[2021-01-27 11:42] LABS: Basophils % (A) 1 %; Eosinophils % (A) 0 %; HGB 11.3 gm/dL (13.0-17.5); Lymphocytes # (A) 1.1 k/uL (1.0-4.8); Lymphocytes % (A) 18 %; MCH 27.2 pg (25.0-35.0); MCHC 33.1 g/dL (31.0-37.0); MCV 82.3 fL (80.0-100.0); Mean Platelet Volume 9.3; Monocytes # (A) 0.4 k/uL (0-1.0); Monocytes % (A) 8 %; Neutrophils # (A) 4.1 k/uL (1.3-7.7); Neutrophils % (A) 71 %; Platelet Count 200 k/uL (150-450); RBC 4.13 m/uL (4.30-5.90); RDW 15.7 % (11.5-15.5); WBC 5.7 k/uL (3.8-10.6)
[2021-01-27 11:59] LABS: Calcium 9.3 mg/dL (8.4-10.2); Potassium 4.5 mmol/L (3.5-5.1)
== END | disposition home or self-care (01) ==
LOC: LABPAT 11:03
PROVIDERS: ATTEND Urology
DX: Z01.812 Encounter for preprocedural laboratory examination (principal); C67.4 Malignant neoplasm of posterior wall of bladder
CPT/HCPCS: 80048; 85025

== ENCOUNTER 2021-02-03 06:15 | Day surgery (SDC) | payer MEDICARE ==
[2021-01-27 15:12] VITALS: BMI 24.3
--- NOTE | 2021-01-31 17:39 | P.GSHP ---
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 He has undergone resection of recurrent tumors on several occasions, most recently on 09/22/2020. At that time, 1 of 2 tumors on the anterior bladder wall could not be adequately resected, and it was therefore fulgurated. Gemcitabine was instilled intravesically, but recent cystoscopy has shown a 1 cm anterior bladder wall tumor cephalad to the vesical neck. He now comes for resection. He has a known urethral stricture which may require an internal urethrotomy. - Constitutional Constitutional: Denies chills, Denies fever - Genitourinary (Male) Genitourinary: Denies dysuria, Denies hematuria Past Medical History Past Medical History: Atrial Fibrillation, Coronary Artery Disease (CAD), Cancer, GI Bleed, Hearing Disorder / Deafness, Hyperlipidemia, Hypertension, Osteoarthritis (OA) Additional Past Medical History / Comment(s): Hx intracranial bleed from fall/hematoma status post bur [id number]-no seizures, hx skin cancer to face,oral [id number] received-difficulty speaking at times(tongue shortened with oral surgery) no difficulty swallowing meds-follows soft diet. some problems with balance-uses walker, bladder tumor-gets bladder scope and wash with Dr Riley Last Myocardial Infarction Date:: unknown History of Any Multi-Drug Resistant Organisms: None Reported Past Surgical History: Bladder Surgery, Cholecystectomy, Coronary Bypass/CABG, Joint Replacement, Orthopedic Surgery, Tonsillectomy Additional Past Surgical History / Comment(s): Bilateral total knee replacements, right shoulder surgery, skin grafting left arm to face for basal cell carcinoma, bilateral cataract removal and lens implants, bilateral eyelid lift, mult bladder surgery for tumors, CABG-quad. Past Anesthesia/Blood Transfusion Reactions: Previous Problems w/ Anesthesia Additional Past Anesthesia/Blood Transfusion Reaction / Comment(s): no problems with prior blood transfusion, has had memory problems/confusion since last general anesthesia September 2020(tumors removed from bladder). daughter states she talked to Dr Riley to request pt not have general as he had problems with it in September. Smoking Status: Former smoker - Past Family History Father Family Medical History: Myocardial Infarction ([place]) Mother Family Medical History: Myocardial Infarction ([place]) Son(s) Family Medical History: Hypertension Additional Family Medical History / Comment(s): He has 6 children and one son has hypertension. Brother(s) Family Medical History: Cancer Additional Family Medical History / Comment(s): . Medications and Allergies Home Medications Medication Instructions Recorded Confirmed Type Garlic 1 tab PO DAILY 06/27/14 01/27/21 History Aspirin 81 mg PO DAILY 05/26/20 01/27/21 History Carvedilol [Coreg] 3.125 mg PO BID 05/26/20 01/27/21 History Apixaban [Eliquis] 2.5 mg PO BID 01/27/21 01/27/21 History Vitamin D(Dose Unknown) 1 tab PO DAILY 01/27/21 01/27/21 History Allergies Allergy/AdvReac Type Severity Reaction Status Date / Time No Known Allergies Allergy Verified 01/27/21 14:50 Surgical - Exam - General well developed, well nourished, no distress - Respiratory normal respiratory effort - Genitourinary normal penis with no external lesions, testicles non-tender - Psychiatric oriented to time, oriented to person, oriented to place, speech is normal, memory intact Assessment and Plan (1) Malignant neoplasm of posterior wall of bladder Status: Acute Code(s): C67.4 - MALIGNANT NEOPLASM OF POSTERIOR WALL OF BLADDER SNOMED Code(s): 648722626 Plan: Cystoscopy, possible internal urethrotomy, TURBT. The patient is aware of potential risks, which include anesthesia, bleeding, infection, and bladder perforation.
[2021-02-03] MEDS ORDERED: LACTATED RINGERS 1,000 ML IV SCH (06:28)
[2021-02-03] MEDS ORDERED: fentaNYL (PF) 50 MCG/ML 2 ML AMP IV PRN (06:28)
[2021-02-03] MEDS ORDERED: ONDANSETRON 4 MG/2 ML VIAL IVP ONE (06:28)
[2021-02-03 06:59] VITALS: RESP 16; TEMP 98.1
[2021-02-03] MEDS ORDERED: DEXAMETHASONE SOD PHOSPHATE 4 MG/ML 1 ML VIAL IVP ONE (07:17)
[2021-02-03] MEDS ORDERED: LIDOCAINE 1% INJ 10MG/ML (20 ML MDV) ONE (07:30)
[2021-02-03] MEDS ORDERED: ROCURONIUM 10 MG/ML (5 ML VIAL) IV ONE (07:30)
[2021-02-03] MEDS ORDERED: PROPOFOL 10 MG/ML 20 ML VIAL IV ONE (07:30)
[2021-02-03] MEDS ORDERED: DEXAMETHASONE SOD PHOSPHATE 10 MG/ML 1 ML VIAL ONE (07:30)
[2021-02-03] MEDS ORDERED: NEOSTIGMINE 1 MG/ML 10 ML VIAL ONE (07:30)
[2021-02-03] MEDS ORDERED: fentaNYL (PF) 50 MCG/ML 2 ML AMP ONE (07:30)
[2021-02-03] MEDS ORDERED: GLYCOPYRROLATE 0.2 MG/ML 2 ML VIAL ONE (07:30)
[2021-02-03] MEDS ORDERED: SUCCINYLCHOLINE CHLORIDE 100 MG/5 ML SYR IV ONE (07:30)
--- NOTE | 2021-02-03 09:04 | P.OP ---
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 He has undergone resection of recurrent tumors on several occasions, most recently on 09/22/2020. At that time, 1 of 2 tumors on the anterior bladder wall could not be adequately resected, and it was therefore fulgurated. Gemcitabine was instilled intravesically, but recent cystoscopy has shown a 1 cm anterior bladder wall tumor cephalad to the vesical neck. He now comes for resection. Operative Findings: 1 cm anterior bladder wall tumor, papillary, just cephalad to vesical neck. Description of Procedure: The patient was taken in the operating room and placed in the dorsal lithotomy position, with his legs supported in Rudi stirrups. The external genitalia was prepped and draped sterilely. The 25-[place] ACMI resectoscope sheath was introduced into the bladder under direct vision. The bladder was inspected. Both ureteral orifices were of normal anatomic location and configuration, and clear urine effluxed from both. The entire bladder was examined, revealing scarring and areas of prior resection. With difficulty, it was possible to visualize the 1 cm papillary anterior bladder wall tumor located just cephalad to the vesical neck. The prostate was partially occluded with a bilobar configuration. Using the bipolar cutting loop, the anterior aspect of the vesical neck was resected to allow improved visualization of the tumor. With the bladder essentially empty and suprapubic compression to push the anterior bladder wall down, it was possible to resect the tumor entirely down to the superficial muscle. The resection bed was fulgurated, as was the adjacent urothelium. There was no concern of bladder perforation. Excellent hemostasis was attained. The resected tissue was saved and sent for pathologic examination. An 18-[place] Bro catheter was inserted. The return was clear. The patient tolerated the procedure well. He was taken to the recovery room in stable condition.
[2021-02-03] MEDS ORDERED: hydrALAZINE HCL 20 MG/ML 1 ML VIAL IVP ONE ×2 (09:08→09:15)
[2021-02-03] MEDS ORDERED: hydrALAZINE HCL 20 MG/ML 1 ML VIAL ONE (09:13)
[2021-02-03 10:21] VITALS: BP 146/70; PULSE 55
== END 2021-02-03 11:13 | disposition home or self-care (01) ==
LOC: OR 06:15
PROVIDERS: ATTEND Urology
DX: C67.9 Malignant neoplasm of bladder, unspecified (principal); I25.10 Atherosclerotic heart disease of native coronary artery without angina pectoris; E78.5 Hyperlipidemia, unspecified; I10 Essential (primary) hypertension; M19.90 Unspecified osteoarthritis, unspecified site; Z85.828 Personal history of other malignant neoplasm of skin; Z95.1 Presence of aortocoronary bypass graft; H91.90 Unspecified hearing loss, unspecified ear; I48.91 Unspecified atrial fibrillation; Z79.01 Long term (current) use of anticoagulants; Z87.891 Personal history of nicotine dependence; Z80.9 Family history of malignant neoplasm, unspecified; F32.9 Major depressive disorder, single episode, unspecified; Z86.73 Personal history of transient ischemic attack (TIA), and cerebral infarction without residual deficits; Z20.822 Contact with and (suspected) exposure to COVID-19
CPT/HCPCS: 88307; 87635; 52234; J0360; J1100 ×2; J2710; J0690; J2001; J3010; J0330; J2704